=== PATIENT | female | born 1965 | race Hispanic/Latino ===

== ENCOUNTER 2017-07-06 22:30 | Observation (INO) | payer OTHER ==
[2017-07-06 23:00] VITALS: BMI 35.5
--- NOTE | 2017-07-06 23:23 | ED PDOC ---
Arrival/HPI <ConnieJuan Carlos - Last Filed: 07/07/17 01:56> - History of Present Illness Time/Duration: 1 hour Symptom Onset: Sudden Symptom Course: Improving Context: Sitting <ReinaOralia - Last Filed: 07/07/17 02:06> - General Chief Complaint: Anxiety Time Seen by Provider: 07/06/17 22:35 - History of Present Illness Narrative History of Present Illness (Text): 07/06/17 23:19 51 y/o F with PMHx of HTN, HLD presents for chest pressure that began about 1.5 hrs prior to coming to ED. Patient states that she was sitting at home when all of a sudden she developed a "sensation" in her epigastric region radiating to her chest. Patient now c/o of slight chest pressure. Denies having any F/C, N/V /D/C, abd pain, cough. Patient also states that she occasionally has LE swelling L>R. Patient called EMS and was told to take 4 baby Aspirins. No recent travels or history of blood clots. Patient denies having any tobacco, ETOH or drug use. Patient's father had CAD. (Oralia Huang) Past Medical History - Provider Review Nursing Documentation Reviewed: Yes - Travel History Have you recently traveled outside [place] w/in the past 3 mons?: No - Cardiac Hx Hypertension: Yes - Musculoskeletal/Rheumatological Hx Falls: No - Psychiatric Hx Depression: No Hx Emotional Abuse: No Hx Physical Abuse: No Hx Substance Use: No - Past Surgical History Past Surgical History: No Previous - Suicidal Assessment Feels Threatened In Home Enviroment: No <Oralia Huang - Last Filed: 07/07/17 02:06> Family/Social History - Physician Review Nursing Documentation Reviewed: Yes Family/Social History: CAD/[place] Smoking Status: Never Smoked Hx Alcohol Use: No Hx Substance Use: No <Oralia Huang - Last Filed: 07/07/17 02:06> Allergies/Home Meds <ConnieJuan Carlos - Last Filed: 07/07/17 01:56> <Oralia Huang - Last Filed: 07/07/17 02:06> Allergies/Adverse Reactions: Allergies No Known Allergies Allergy (Verified 05/03/13 20:34) Home Medications: Home Meds Medication Instructions Recorded Confirmed Losartan/Hydrochlorothiazide 1 tab PO DAILY 03/16/16 03/16/16 [Hyzaar 100-25 Tablet] Review of Systems - Review of Systems Constitutional: Normal. absent: Fatigue, Fevers Eyes: Normal. absent: Photophobia ENT: Normal. absent: Sore Throat, Rhinorrhea Respiratory: Normal. absent: SOB, Cough, Sputum, Wheezing Cardiovascular: Normal, Chest Pain. absent: Palpitations, Edema, Calf Pain Gastrointestinal: Normal. absent: Abdominal Pain, Constipation, Diarrhea, Nausea, Vomiting Genitourinary Female: Normal. absent: Dysuria, Frequency Musculoskeletal: absent: Back Pain Skin: Normal. absent: Rash, Pruritis, Skin Lesions Neurological: Normal. absent: Headache, Dizziness Endocrine: Normal. absent: Diaphoresis Hemo/Lymphatic: Normal. absent: Adenopathy, Easy Bleeding <Oralia Huang - Last Filed: 07/07/17 02:06> Physical Exam Temperature: Afebrile Blood Pressure: Hypertensive Pulse: Regular Respiratory Rate: Normal Appearance: Positive for: Well-Appearing, Non-Toxic, Comfortable Pain Distress: None Mental Status: Positive for: Alert and Oriented X 3 - Systems Exam Head: Present: Atraumatic, Normocephalic Extroacular Muscles: Present: EOMI Mouth: Present: Moist Mucous Membranes Respiratory/Chest: Present: Clear to Auscultation, Good Air Exchange. No: Respiratory Distress, Accessory Muscle Use, Wheezes, Rales, Rhonchi Cardiovascular: Present: Regular Rate and Rhythm, Normal S1, S2. No: Murmurs, Rub, Gallop, Muffled Abdomen: Present: Normal Bowel Sounds. No: Tenderness, Distention, Peritoneal Signs, Rebound, Guarding Upper Extremity: No: Cyanosis, Edema Lower Extremity: Present: Normal Inspection, NORMAL PULSES. No: Edema, CALF TENDERNESS, Shaina's Sign Neurological: Present: GCS=15 Skin: Present: Warm, Dry, Normal Color. No: Rashes, Pale Psychiatric: Present: Alert, Oriented x 3, Normal Insight, Normal Concentration <Oralia Huang - Last Filed: 07/07/17 02:06> Vital Signs Temp Pulse Resp BP Pulse Ox 07/07/17 01:56 78 16 133/76 99 07/06/17 22:31 98.9 F 75 16 150/96 H 96 Medical Decision Making - Lab Interpretations I have reviewed the lab results: Yes - RAD Interpretation Reservation Agent: ED Physician, Radiologist - EKG Interpretation Interpreted by ED Physician: Yes Type: 12 lead EKG <Juan Carlos Rosales - Last Filed: 07/07/17 01:56> - Lab Interpretations I have reviewed the lab results: Yes - RAD Interpretation Reservation Agent: ED Physician, Radiologist - EKG Interpretation Interpreted by ED Physician: Yes Type: 12 lead EKG <Oralia Huang - Last Filed: 07/07/17 02:06> ED Course and Treatment: Impression: Pt seen and evaluated with medical massage therapist. Pt, whose past medical history includes hypertension and hyperlipidemia, complaining of chest pressure. Aware and agree with HPI, clinical findings, plan, and management. Plan: -- EKG -- Chest X-ray -- US Duplex Lower Extremities -- Labs, cardiac enzymes -- Reassess and disposition 07/07/17 01:[address] Ott, who is aware and agrees with plan. Accepts pt in to his service. Pt will go to Telemetry for chest pain. Requests Dr. Squires on consult. (Juan Carlos Rosales) 07/06/17 23:26 51 y/o F presents for chest pressure. Patient took stat dose fo Aspirin prior to coming ot hospital. Will check CBC, CMP, cardiac enzymes, EKG, CXR, LE US 07/07/17 01:54 Dr. Rosales spoke with Dr. Ott who accepts patient under his service. Resident is notified. (Oralia Huang) - Lab Interpretations Narrative Lab Interpretation (Text): 07/07/17 01:46 noted to have WBC count of 12.3 07/07/17 02:06 troponin is negative (Oralia Huang) Lab Results: 07/07/17 01:05 07/07/17 01:05 Lab Results 07/07/17 01:50: Urine Color Yellow, Urine Appearance Slight-cloudy, Urine pH 6.0 , Ur Specific [place] 1.025, Urine Protein Negative, Urine Glucose (UA) Negative , Urine Ketones Negative, Urine Blood Small H, Urine Nitrate Negative, Urine Bilirubin Negative, Urine Urobilinogen 0.2, Ur Leukocyte Esterase Negative, Urine RBC Pending, Urine WBC Pending 07/07/17 01:05: Sodium 143, Potassium 4.2, Chloride 102, Carbon Dioxide 28, Anion Gap 17, BUN 17, Creatinine 0.6, Est GFR ( Amer) > 60, Est GFR (Non- Af Amer) > 60, Random Glucose 128 H, Calcium 10.0, Total Bilirubin 0.4, AST 27, ALT 30, Alkaline Phosphatase 78, Lactate Dehydrogenase 331 L, Total Creatine Kinase 54, Troponin I < 0.01, Total Protein 7.4, Albumin 4.3, Globulin 3.2, Albumin/Globulin Ratio 1.3 07/07/17 01:05: WBC 12.3 H D, RBC 4.69, Hgb 13.9, Hct 41.0, MCV 87.4, MCH 29.6, MCHC 33.9, RDW 13.4, Plt Count 282, MPV 9.9 - RAD Interpretation Narrative RAD Interpretations (Text): 07/07/17 01:03 CXr was negative. LE Us was negative. (Oralia Huang) Radiology Orders: 07/06/17 23:17 DUPLEX LOWER EXTRM VEIN BILAT [US] Stat 07/06/17 23:19 CHEST PORTABLE [RAD] Stat - EKG Interpretation EKG Interpretation (Text): 07/06/17 23:25 NSR HR of 70, no ST changes, normal axis and normal interval. No change compared to EKG from 2016 (Oralia Huang) - PA / [employer] / Resident Statement KRZYSZTOF has reviewed & agrees with the documentation as recorded. KRZYSZTOF has examined the patient and agrees with the treatment plan. <Juan Carlos Rosales - Last Filed: 07/07/17 01:56> Disposition/Present on Arrival <Juan Carlos Rosales - Last Filed: 07/07/17 01:56> - Present on Arrival Any Indicators Present on Arrival: No History of DVT/PE: No History of Uncontrolled Diabetes: No Urinary Catheter: No History of Decub. Ulcer: No History Surgical Site Infection Following: None - Disposition Have Diagnosis and Disposition been Completed?: Yes Disposition Time: 02:06 Patient Plan: Admission, Observation <Oralia Huang - Last Filed: 07/07/17 02:06> - Disposition Diagnosis: Chest pain Disposition: HOSPITALIZED Condition: STABLE Discharge Instructions (ExitCare): Chest Pain (ED) Referrals: Shanae Meier MD [Primary Care Provider] - Follow up with primary Forms: [facility] (Syrian)
[2017-07-07 01:34] LABS: HEMOGLOBIN 13.9 g/dL (12.0-16.0); MEAN CELL VOLUME 87.4 fl (80.0-105.0); MEAN CORPUSCULAR HEMOGLOBIN 29.6 pg (25.0-35.0); MEAN CORPUSCULAR HGB CONC 33.9 g/dl (31.0-37.0); MEAN PLATELET VOLUME 9.9 fl (7.0-11.0); RBC 4.69 10^6/uL (3.5-6.1); RED CELL DISTRIBUTION WIDTH 13.4 % (11.5-14.5); WHITE BLOOD COUNT 12.3 10^3/ul (4.5-11.0)
[2017-07-07 01:43] LABS: ALB/GLOB RATIO 1.3 (1.1-1.8); ALBUMIN 4.3 g/dL (3.0-4.8); ALT/SGPT 30 U/L (7-56); AST/SGOT 27 U/L (15-39); BLOOD UREA NITROGEN 17 mg/dL (7-21); GFR AFRICAN-AMERICAN > 60; GFR NON-AFRICAN AMERICAN > 60
[2017-07-07 01:59] LABS: TROPONIN I < 0.01 ng/mL
[2017-07-07 02:00] LABS: URINE BILIRUBIN NEGATIVE (NEGATIVE); URINE BLOOD SMALL (NEGATIVE); URINE GLUCOSE (UA) NEGATIVE (NEGATIVE); URINE LEUKOCYTE ESTERASE NEGATIVE Leu/uL (NEGATIVE); URINE NITRATE NEGATIVE (NEGATIVE); URINE PROTEIN NEGATIVE mg/dL (<30 mg/dL); URINE UROBILINOGEN 0.2 E.U./dL (<1 E.U./dL)
[2017-07-07 02:03] LABS: URINE APPEARANCE SLIGHT-CLOUDY (CLEAR); URINE COLOR YELLOW (YELLOW)
[2017-07-07 02:13] LABS: URINE WBC 0 - 2 /hpf (0-6)
[2017-07-07 02:14] LABS: URINE EPITHELIAL CELLS 0 - 2 /hpf (0-5)
--- NOTE | 2017-07-07 02:59 | CP.PCM.HP ---
History of Present Illness - History of Present Illness History of Present Illness: CC: I wasn't feeling right HPI: 51 yo female PMHx HTN, HLD, DM2, anal fissure presents complaining of a "funny sensation" from her abdomen to her chest that occurred the evening prior to admission. Patient reports she was eating dinner [Polish food and pizza] and started to feel a cold sensation in her stomach after her meal while she was lying in bed. She checked her blood pressure and it was 178/93mmHg. Patient reports she has been compliant with her medications. She reports she has had a similar presentation in the past but this time her sensation lasted for 15 minutes after which she decided to call 911. Patient said that during the episode she started to feel anxious and was having some fluttering down her left arm. She denied any acute chest pain but admitted to palpitations at time of event. Patient denied fever, chills, headache, change in vision, change in hearing, sore throat, chest pain, SOB, cough, abd pain, nausea, vomiting, diarrhea, hematemesis, hematochezia, dysuria, urinary frequency, leg swelling, rash, easy bruising, easy bleeding, recent travel, sick contacts, change in weight. She admitted to dizziness, palpitations, constipation, leg pain, anxiety. Patient has also been complaining of blood after she wipes after a BM- she has a history of anal fissures and has been advised to do a colonoscopy but has not done so as of yet. 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 absent: Chills, Fever - EENT Eyes: As Per HPI. absent: Blurred Vision Ears: As Per HPI, Dizziness Nose/Mouth/Throat: As Per HPI. absent: Sore Throat - Cardiovascular Cardiovascular: As Per HPI, Palpitations. absent: Chest Pain, Dyspnea on Exertion, Edema, Leg Edema - Respiratory Respiratory: As Per HPI. absent: Cough, Dyspnea - Gastrointestinal Gastrointestinal: As Per HPI, Constipation, Hematochezia. absent: Abdominal Pain, Nausea, Vomiting - Genitourinary Genitourinary: As Per HPI. absent: Dysuria, Hematuria, Pyuria - Musculoskeletal Musculoskeletal: As Per HPI, Myalgias (legs bilaterally). absent: Back Pain, Numbness, Tingling - Integumentary Integumentary: As Per HPI. absent: Dry Skin - Neurological Neurological: As Per HPI, Dizziness. absent: Headaches - Psychiatric Psychiatric: As Per HPI, Anxiety. absent: Depression - Endocrine Endocrine: As Per HPI. absent: Polydipsia, Polyphagia, Polyuria - Hematologic/Lymphatic Hematologic: As Per HPI. absent: Easy Bleeding, Easy Bruising, Lymphadenopathy Past Patient History - Past Social History Smoking Status: Never Smoked - CARDIAC Hx Hypertension: Yes - MUSCULOSKELETAL/RHEUMATOLOGICAL Hx Falls: No - PSYCHIATRIC Hx Depression: No Hx Emotional Abuse: No Hx Physical Abuse: No Hx Substance Use: No Meds Allergies/Adverse Reactions: Allergies Allergy/AdvReac Type Severity Reaction Status Date / Time No Known Allergies Allergy Verified 05/03/13 20:34 Physical Exam - Constitutional Appears: Non-toxic, No Acute Distress - Head Exam Head Exam: ATRAUMATIC, NORMAL INSPECTION, NORMOCEPHALIC - Eye Exam Eye Exam: EOMI, Normal appearance, PERRL. absent: Conjunctival injection, Scleral icterus Pupil Exam: NORMAL ACCOMODATION - ENT Exam ENT Exam: Mucous Membranes Moist - Neck Exam Neck exam: Positive for: Full Rom, Normal Inspection - Respiratory Exam Respiratory Exam: Clear to Auscultation Bilateral, NORMAL BREATHING PATTERN. absent: Accessory Muscle Use, Rales, Rhonchi, Wheezes, Respiratory Distress - Cardiovascular Exam Cardiovascular Exam: REGULAR RHYTHM, RRR, +S1, +S2 - GI/Abdominal Exam GI & Abdominal Exam: Normal Bowel Sounds, Soft. absent: Firm, Guarding, Rigid, Tenderness - Extremities Exam Extremities exam: Positive for: normal capillary refill, normal inspection, pedal pulses present. Negative for: pedal edema, tenderness - Back Exam Back exam: NORMAL INSPECTION. absent: rash noted - Neurological Exam Neurological exam: Alert, Oriented x3 - Psychiatric Exam Psychiatric exam: Normal Affect, Normal Mood - Skin Skin Exam: Dry, Intact, Normal Color, Warm Results - Vital Signs Recent Vital Signs: Last Vital Signs Temp 98.9 F 07/06/17 22:31 Pulse 78 07/07/17 01:56 Resp 16 07/07/17 01:56 BP 133/76 07/07/17 01:56 Pulse Ox 99 07/07/17 01:56 - Labs Result Diagrams: 07/07/17 01:05 07/07/17 01:05 Assessment & Plan - Assessment and Plan (Free Text) Assessment: 51 yo female PMHx HTN, HLD, DM2, anal fissure presents complaining of a "funny sensation" from her abdomen to her chest that occurred the evening prior to admission Plan: Atypical chest pain - r/o ACS - Troponin: < 0.01 f/u GUNNAR x 2 q6H - EKG: sinus tachycardia at 102 bpm normal axis normal intervals no ST elevations f/u EKG x 2 q6H - D-dimer: 0.45 - f/u Echo - f/u fasting lipid panel - f/u TSH and free T4 - f/u CXR official read - ASA 81mg po daily - Lipitor 40mg po qhs - NS @ 100cc/hr Leukocytosis - on admission: 12.3 - f/u blood culture and urine culture - Monitor as patient is afebrile and asymptomatic B/l LE pain - f/u LE u/s b/l - hold SCDs until DVT ruled out Hx of hypertension - HCTZ 25mg po daily - Cozaar 100mg po daily - Lopressor 25mg po bid Hx of DM2 - f/u HgbA1c - RISS low dose - Accucheck ACHS - Heart healthy moderate consistent carb diet - NS @ 100cc/hr - Check sugars and adjust medications accordingly Hx of HLD - f/u fasting lipid panel - Lipitor 40mg po hs Hx of anal fissures - patient reports constipation and blood after wiping after BM - Colace 100mg po daily Hx of Anxiety - Patient does not take any medications at home - Monitor GI ppx: Protonix 40mg po daily DVT ppx: Lovenox 40mg sc daily Diet: Heart healthy moderate consistent carb diet Will discuss case with Dr. Tru Tejeda PGY2
[2017-07-07] MEDS ORDERED: Sodium Chloride 0.9% 1,000 ML IV SCH (05:15)
[2017-07-07] MEDS ORDERED: Pantoprazole 40 mg EC Tab PO SCH (06:00)
[2017-07-07 06:36] VITALS: RESP 20
[2017-07-07] MEDS ORDERED: Insulin Lispro (humaLOG) LOW Coverage SC SCH (07:30)
[2017-07-07 08:08] LABS: % IRON SATURATION 13 % (20-55); IRON 54 ug/dL (45-180); TOTAL IRON BINDING CAPACITY 417 ug/dL (265-497)
--- NOTE | 2017-07-07 09:01 | RAD ---
HISTORY: Chest pressure. Technique: Portable study performed @ 00:31. COMPARISON: 01/29/2016. FINDINGS: LUNGS: No active pulmonary disease. PLEURA: No significant pleural effusion identified, no pneumothorax apparent. CARDIOVASCULAR: No radiographic findings to suggest acute or significant cardiovascular disease. OSSEOUS STRUCTURES: No significant abnormalities. VISUALIZED UPPER ABDOMEN: Normal. OTHER FINDINGS: None. IMPRESSION: No active disease. No significant interval change compared to the prior examination(s). No preliminary report provided by emergency department personnel.
[2017-07-07] MEDS ORDERED: Enoxaparin 40 mg Syringe SC SCH (10:00)
[2017-07-07 11:11] LABS: TROPONIN I < 0.01 ng/mL
[2017-07-07 11:37] LABS: TRANSFERRIN 347.31 mg/dL (206-381)
[2017-07-07 12:19] LABS: FERRITIN 15.3 ng/mL
[2017-07-07 12:50] LABS: FOLATE 13.4 ng/mL
--- NOTE | 2017-07-07 12:52 | US ---
HISTORY: Leg pain and swelling. Evaluate for DVT PHYSICIAN(S): Omid Kirkland MD. TECHNIQUE: Duplex sonography and color-flow Doppler with graded compression were used to evaluate the deep venous systems of both lower extremities. FINDINGS: The visualized deep venous systems of both lower extremities are sonographically normal and compressible. Normal wave forms and augmentation are seen. There is no sonographic evidence for deep venous thrombosis in the visualized segments of both lower extremities. IMPRESSION: No sonographic evidence for deep venous thrombosis in the visualized segments of both lower extremities.
--- NOTE | 2017-07-07 13:49 | CARD ---
APPROVED REPORT EKG Measurement Heart [id number] <Conclusion> Normal sinus rhythm Inferior infarct, age undetermined Abnormal ECG
--- NOTE | 2017-07-07 13:55 | CARD ---
APPROVED REPORT EKG Measurement Heart [id number] <Conclusion> Normal sinus rhythm Cannot rule out Inferior infarct, age undetermined Abnormal ECG
[2017-07-07 13:57] VITALS: BP 119/82; PULSE 68; TEMP 98.6; O2SAT 98
--- NOTE | 2017-07-07 14:30 | CON ---
DATE: 07/07/2017 CARDIOLOGY CONSULTATION HISTORY OF PRESENT ILLNESS: The patient is a 51-year-old woman who presents with epigastric discomfort after a large fatty meals. She also complains of occasional palpitations. The patient's past medical history has had multiple episodes of similar symptoms. Cardiac workup includes two sequential stress test which were unremarkable. The patient suffers from morbid obesity, hypertension and hypercholesterolemia. The patient is noncompliant current dietary and cardiac risk fever risk reduction instructions. SOCIAL HISTORY: She denies smoking. REVIEW OF SYSTEMS: A 14-point review of systems was reviewed. No cardiac symptomatology is noted. The patient is asking the go home. PHYSICAL EXAMINATION VITAL SIGNS: Blood pressure is 140/84, the heart rate is in the 70s and normal sinus rhythm. NECK: Negative JVD. LUNGS: Without rales. HEART: Reveals S1 and S2. EXTREMITIES: Without edema. LABORATORY DATA: Includes a glucose of 128. Troponin is negative. Hemoglobin is 13.9. IMPRESSION 1. Peptic ulcer symptoms after a large fatty meal. 2. Palpitations. 3. Atypical chest pain. 4. Hypertension. 5. Hypercholesterolemia. 6. Morbid obesity. PLAN: Given these findings, I have discussed her lifestyle with the patient in detail. The patient seems to understand. We will DC telemetry today. We will arrange for an outpatient stress test, especially given her cardiac risk factors. Omid Squires MD
[2017-07-07 15:33] LABS: FREE T4 1.04 ng/dL (0.78-2.19)
--- NOTE | 2017-07-08 09:35 | DS ---
FINAL PROGRESS NOTE AND DISCHARGE SUMMARY DATE: 07/07/2017 LOCATION: The patient was seen in room 269, bed 1. HISTORY OF PRESENT ILLNESS: The patient is comfortable. The patient's symptoms have resolved for which the patient presented to the emergency room. The patient is seen lying in the bed. The patient is comfortable without any complaints of chest pain, shortness of breath. The patient was seen lying in the bed. The patient denies any chest pain. Denies any shortness of breath. Denies any palpitations. Denies any burning sensation. Denies any chest pressure. Denies any heaviness. PHYSICAL EXAMINATION: VITAL SIGNS: The patient is afebrile, T-max 98.9, telemetry shows sinus rhythm, blood pressure 148/95, 140/84, 147/84, respirations 20, and O2 saturation 97%. HEAD: Normocephalic and atraumatic. HEENT: Shows pink conjunctivae. No oropharyngeal lesion. NECK: No neck rigidity. CHEST: Kyphosis. LUNGS: Shows no rales, crackles, or wheezing. CARDIOVASCULAR: S1 and S2, regular rhythm. ABDOMEN: Obese. Positive bowel sounds. GENITALIA: Female. RECTAL: Deferred. EXTREMITIES: Shows no pitting edema. No calf tenderness. No Homans' sign. NEUROLOGIC: The patient is alert, awake and oriented x 3. Examination without any deficits. Cranial nerves II through XII intact. MUSCULOSKELETAL: Shows body mass index of 37. LABORATORY DATA: Cardiac enzymes are negative. EKG reviewed shows sinus rhythm. Chest x-ray was negative for any active disease. EKG is reviewed. The patient was seen by Dr. Omid Squires today. Telemetry was discontinued by Dr. Omid Squires. IMPRESSION AND PLAN: 1. Possibly atypical chest pain. 2. Hypertension. 3. Morbid obesity. 4. Hyperlipidemia. 5. Type 2 diabetes mellitus. 6. Leukocytosis. 7. Hypertriglyceridemia and hypercholesterolemia with elevated LDL. 8. Microscopic hematuria. 9. History of dyslipidemia. PLAN: At this time, the patient is clear for discharge by cardiology. DISCHARGE MEDICATIONS: The patient was advised to resume all medications at home including aspirin 325 mg p.o daily, Hyzaar 100/25 daily, Lipitor 40 mg daily, Lopressor 25 mg twice a day. The patient is discharged home with discharge followup with Dr. Ott within [address] Squires within 1 week. The patient was advised to resume all medications. As dictated above, the patient was also advised. As in the past, the patient had a stress test done in 02/2016, which was negative. With normal ejection fraction. The patient's time spent in the entire discharge process more than 45 minutes. The patient was explained about the details at length. Dictated and electronically signed, not read. Signing off, Jorden Ott. Jorden Ott MD
== END 2017-07-07 13:13 | disposition home or self-care (01) ==
LOC: ED 22:30 → ERH 07-07 02:14 → 2RNO 07-07 05:08
PROVIDERS: ADMIT Internal Medicine; ATTEND Internal Medicine
DX: R07.89 Other chest pain (principal); I10 Essential (primary) hypertension; E66.01 Morbid (severe) obesity due to excess calories; E78.5 Hyperlipidemia, unspecified; E11.9 Type 2 diabetes mellitus without complications; D72.829 Elevated white blood cell count, unspecified; E78.2 Mixed hyperlipidemia; R31.29 Other microscopic hematuria; Z79.4 Long term (current) use of insulin; Z68.36 Body mass index [BMI] 36.0-36.9, adult; Z91.11 Patient's noncompliance with dietary regimen
CPT/HCPCS: 71010; 80053; 80061; 81001; 82550; 82607; 82728; 82746; 82948; 83036; 83540; 83550; 83615; 84439; 84443; 84484; 85027; 93005; 93970; 99285; G0378; J1650; J7040

== ENCOUNTER 2017-08-29 07:44 | Emergency (ER) | payer OTHER ==
[2017-08-29 07:45] VITALS: BMI 35.5
[2017-08-29 07:57] VITALS: TEMP 98.7; O2SAT 100
[2017-08-29] MEDS ORDERED: Sodium Chloride 0.9% 1,000 ML IV STA (08:09)
--- NOTE | 2017-08-29 08:13 | ED PDOC ---
Arrival/HPI - General Chief Complaint: Anxiety Time Seen by Provider: 08/29/17 08:08 - History of Present Illness Narrative History of Present Illness (Text): 08/29/17 08:10 51yo female with an episode of dizziness, feeling like the room was spinning, feeling weak, and having palpitations. States this spontaneously resolved, except for weakness. Pt reports she had no chest pain, no SOB, no TROTTER. States she has had these episodes in the past. Had a normal stress test last year, states she had 2 negative CTs of her head. States she has had chronic LLE swelling, no trauma or injury. No nausea or vomiting, no abdominal or back pains. No other complaints. Past Medical History - Provider Review Nursing Documentation Reviewed: Yes - Cardiac Hx Cardiac Disorders: Yes (hyperlipidemia) Hx Hypertension: Yes Hx Peripheral Edema: Yes (bilateral leg edema +1) - Pulmonary Hx Respiratory Disorders: No - Neurological Hx Neurological Disorder: No - HEENT Hx HEENT Disorder: No - Renal Hx Renal Disorder: No - Endocrine/Metabolic Hx Endocrine Disorders: No - Hematological/Oncological Hx Blood Disorders: No - Integumentary Hx Dermatological Disorder: No - Musculoskeletal/Rheumatological Hx Musculoskeletal Disorders: No Hx Arthritis: (joint pains) Hx Falls: No - Gastrointestinal Hx Gastrointestinal Disorders: No - Genitourinary/Gynecological Hx Genitourinary Disorders: No - Psychiatric Hx Psychophysiologic Disorder: Yes Hx Anxiety: Yes Hx Depression: Yes Hx Substance Use: No - Past Surgical History Past Surgical History: No Previous - Suicidal Assessment Feels Threatened In Home Enviroment: No Family/Social History - Physician Review Nursing Documentation Reviewed: Yes Family/Social History: Unknown Family HX Smoking Status: Never Smoked Hx Alcohol Use: No Hx Substance Use: No Allergies/Home Meds Allergies/Adverse Reactions: Allergies No Known Allergies Allergy (Verified 08/29/17 07:49) Home Medications: Home Meds Medication Instructions Recorded Confirmed Losartan/Hydrochlorothiazide 1 tab PO DAILY 03/16/16 08/29/17 [Hyzaar 100-25 Tablet] Aspirin [Ecotrin] 81 mg PO DAILY 08/29/17 08/29/17 Atorvastatin [Lipitor] 20 mg PO .EVERY OTHER DAY 08/29/17 08/29/17 Physical Exam - Physical Exam Narrative Physical Exam (Text): 08/29/17 08:13 - Review of Systems Constitutional: weakness. absent: Weight Change, Fevers Eyes: Normal ENT: denies sore throat, denies tristhmus Respiratory: Normal. absent: SOB, Cough, Sputum Cardiovascular: palpitations. absent: Chest Pain, Syncope Gastrointestinal: Normal. absent: Abdominal Pain, Diarrhea, Nausea, Vomiting Genitourinary: Normal. absent: Dysuria, Frequency, Hematuria, vaginal bleeding Musculoskeletal: Normal. absent: Arthralgias, Back Pain, Neck Pain Skin: no rashes, no erythema Neurological: absent: Focal Weakness Endocrine: Normal Hemo/Lymphatic: Normal Psychiatric: No suicidal or homicidal ideations Physical exam Patient appears age appropriate in no distress, speaking full sentences without difficulty - Systems Exam Head: Present: Atraumatic, Normocephalic Pupils: Present: PERRL Extroacular Muscles: Present: EOMI Conjunctiva: Present: Normal Mouth: Present: Moist Mucous Membranes Neck: Present: Normal Range of Motion. No: MIDLINE TENDERNESS, Paraspinal Tenderness Respiratory/Chest: Present: Clear to Auscultation, Good Air Exchange. No: Respiratory Distress, Accessory Muscle Use, Tachypneic Cardiovascular: Present: Regular Rate and Rhythm, Normal S1, S2, Peripheal Pulses Present. No: Murmurs Abdomen: Present: Normal Bowel Sounds. No: Tenderness, Distention, Peritoneal Signs, Rebound, Guarding Back: Present: Normal Inspection. No: Midline Tenderness, Paraspinal Tenderness Upper Extremity: Present: Normal Inspection. No: Cyanosis, Edema Lower Extremity: Present: Normal Inspection. No: Edema Neurological: Present: GCS=15, Speech Normal, cranial nerves II through XII fully intact with no cerebellar abnormality, neurosensory fully intact. No focal neurological deficits. Skin: Present: Warm, Dry, Normal Color. No: Rashes Lymphatic: Present: OX3, NI, NC Psychiatric: Present: Alert, Oriented x 3, Normal Insight, Normal Concentration Vital Signs Reviewed: Yes Vital Signs Temp Pulse Resp BP Pulse Ox 08/29/17 10:06 63 16 121/69 100 08/29/17 07:56 98.7 F 68 15 124/89 100 Temperature: Afebrile Blood Pressure: Normal Pulse: Regular Respiratory Rate: Normal Appearance: Positive for: Well-Appearing Pain Distress: None Mental Status: Positive for: Alert and Oriented X 3 Finger Stick Blood Glucose: 142 Medical Decision Making ED Course and Treatment: Progress Notes: 51yo female with weakness, palpitations, and dizziness episode. Pt states this has happened in the past. No acute findings on PE and no focal neurological deficits. VSS and accucheck in the 140s. Previous records reviewed, patient was discharged on 07/07/17. Diagnosis was atypical chest pain, hypertension, dyslipidemia, type 2 diabetes, leukocytosis. Patient has been seen by cardiology, and her stress test was documented from which was negative with normal ejection fraction. 08/29/17 09:11 Case discussed with coding technician, results are negative for DVT bilaterally. 08/29/17 10:16 pt in no distress and denies complaints I recommended admission into the hospital for further w/u, but pt states she would like to be dc'd home dw dr. Ott in detail, states pt can f/u with him today pt states she feels comfortable being dc'd home with outpatient f/u Pt states she understands to return to the ER right away for new or worsening symptoms or for inability to f/u with PMD or specialist as instructed. Patient states that she fully agrees with and understands discharge instructions. States that she agrees with the plan and disposition. Verbalized and repeated discharge instructions and plan. I have given the patient opportunity to ask any additional questions. - Lab Interpretations Lab Results: 08/29/17 08:20 08/29/17 08:20 Lab Results 08/29/17 08:20: Free T4 0.84, TSH 3rd Generation 1.01 08/29/17 08:20: Sodium 141, Potassium 3.6, Chloride 105, Carbon Dioxide 24, Anion Gap 16, BUN 19, Creatinine 0.5 L, Est GFR ( Amer) > 60, Est GFR ( Non-Af Amer) > 60, Random Glucose 121 H, Calcium 9.6, Total Bilirubin 0.5, AST 23, ALT 32, Alkaline Phosphatase 64, Lactate Dehydrogenase 368, Total Creatine Kinase 42, Troponin I < 0.01, Total Protein 7.0, Albumin 3.9, Globulin 3.0, Albumin/Globulin Ratio 1.3 08/29/17 08:20: PT 10.7, INR 0.99, APTT 30.1 08/29/17 08:20: WBC 7.6 D, RBC 4.63, Hgb 14.0, Hct 39.9, MCV 86.2, MCH 30.2, MCHC 35.1, RDW 13.4, Plt Count 251, MPV 10.1, Gran % 70.2 H, Lymph % (Auto) 20.6 L, [place] % (Auto) 7.1 H, Eos % (Auto) 1.7, Baso % (Auto) 0.4, Gran # 5.30, Lymph # 1.6, [place] # 0.5, Eos # 0.1, Baso # 0.03 08/29/17 08:05: POC Glucose (mg/dL) 142 H - RAD Interpretation Radiology Orders: 08/29/17 08:09 CHEST ONE VIEW [RAD] Stat DUPLEX LOWER EXTRM VEIN BILAT [US] Stat - Medication Orders Current Medication Orders: Discontinued Medications Sodium Chloride (Sodium Chloride 0.9%) 1,000 mls @ 1,000 mls/hr IV .Q1H STA Stop: 08/29/17 09:08 Last Admin: 08/29/17 08:35 Dose: 1,000 mls/hr eMAR Start Stop Document 08/29/17 08:35 (Rec: 08/29/17 08:35 [id number]) Intravenous Solution Start Date 08/29/17 Start Time 08:35 End Date 08/29/17 End time 10:09 Total Infusion Time 94 - Scribe Statement The provider has reviewed the documentation as recorded by the Vince Paulino Provider Scribe Attestation: All medical record entries made by the Scribe were at my direction and personally dictated by me. I have reviewed the chart and agree that the record accurately reflects my personal performance of the history, physical exam, medical decision making, and the department course for this patient. I have also personally directed, reviewed, and agree with the discharge instructions and disposition. Disposition/Present on Arrival - Present on Arrival Any Indicators Present on Arrival: No History of DVT/PE: No History of Uncontrolled Diabetes: No Urinary Catheter: No History of Decub. Ulcer: No History Surgical Site Infection Following: None - Disposition Have Diagnosis and Disposition been Completed?: Yes Diagnosis: Palpitations Disposition: HOME/ ROUTINE Disposition Time: 10:12 Patient Plan: Discharge Condition: GOOD Discharge Instructions (ExitCare): Palpitations (ED), Weakness (ED) Additional Instructions: PLEASE REPORT TO DR. GRAFF OFFICE TODAY FOR FOLLOW UP RETURN TO THE ER RIGHT AWAY FOR NEW OR WORSENING SYMPTOMS OR IF YOU CANNOT FOLLOW UP INSTRUCTED Referrals: Shanae Meier MD [Primary Care Provider] - Follow up with primary Jorden Ott MD [Staff Provider] - Follow up with primary Forms: [employer] (Indonesian), WORK NOTE
[2017-08-29 08:37] LABS: BASO # 0.03 K/mm3 (0.0-2.0); BASO % 0.4 % (0.0-3.0); EOS # 0.1 (0.0-0.7); EOS % 1.7 % (1.5-5.0); GRAN # 5.3 (1.4-6.5); GRAN % 70.2 % (50.0-68.0); HEMATOCRIT 39.9 % (36.0-48.0); LYMPH # 1.6 (1.2-3.4); LYMPH % 20.6 % (22.0-35.0); MEAN CELL VOLUME 86.2 fl (80.0-105.0); MEAN CORPUSCULAR HEMOGLOBIN 30.2 pg (25.0-35.0); MEAN CORPUSCULAR HGB CONC 35.1 g/dl (31.0-37.0); MEAN PLATELET VOLUME 10.1 fl (7.0-11.0); MONO # 0.5 (0.1-0.6); MONO % 7.1 % (1.0-6.0); RED CELL DISTRIBUTION WIDTH 13.4 % (11.5-14.5); WHITE BLOOD COUNT 7.6 10^3/ul (4.5-11.0)
[2017-08-29 08:47] LABS: ALB/GLOB RATIO 1.3 (1.1-1.8); ALKALINE PHOSPHATASE 64 U/L (38-126); ALT/SGPT 32 U/L (7-56); AST/SGOT 23 U/L (14-36); BILIRUBIN,TOTAL 0.5 mg/dL (0.2-1.3); BLOOD UREA NITROGEN 19 mg/dL (7-21); CALCIUM 9.6 mg/dL (8.4-10.5); CARBON DIOXIDE 24 mmol/L (21-33); CHLORIDE 105 mmol/L (98-107); GFR AFRICAN-AMERICAN > 60; GLUCOSE,RANDOM 121 mg/dL (70-110); INR 0.99 (0.93-1.08); PARTIAL THROMBOPLASTIN TIME 30.1 Seconds (23.7-30.8); POTASSIUM 3.6 mmol/L (3.6-5.0); SODIUM 141 mmol/L (132-148)
[2017-08-29 08:58] LABS: TROPONIN I < 0.01 ng/mL
[2017-08-29 09:03] LABS: FREE T4 0.84 ng/dL (0.78-2.19)
[2017-08-29 09:17] LABS: THYROID STIMULATING HORMONE 1.01 mIU/mL (0.46-4.68)
--- NOTE | 2017-08-29 09:39 | RAD ---
PROCEDURE: CHEST RADIOGRAPH, 1 VIEW HISTORY: palpitations COMPARISON: 07/07/2017. FINDINGS: LUNGS: The lungs are clear. PLEURA: There is a small left pleural effusion No pneumothorax or right pleural effusion seen. CARDIOVASCULAR: Normal. OSSEOUS STRUCTURES: No significant abnormalities. VISUALIZED UPPER ABDOMEN: Normal. OTHER FINDINGS: None. IMPRESSION: Small left pleural effusion.
[2017-08-29 10:09] VITALS: BP 121/69; PULSE 63; RESP 16
--- NOTE | 2017-08-29 21:25 | CARD ---
APPROVED REPORT EKG Measurement Heart [id number] <Conclusion> Sinus rhythm with premature atrial complexes Otherwise normal ECG
== END 2017-08-29 10:39 | disposition home or self-care (01) ==
LOC: ED 07:44
DX: R00.2 Palpitations (principal); I10 Essential (primary) hypertension; E78.5 Hyperlipidemia, unspecified
CPT/HCPCS: 71010; 80053; 82550; 82948; 83615; 84439; 84443; 84484; 85025; 85610; 85730; 93005; 93970; 96360; 96361; 99284; J7040

== ENCOUNTER 2017-12-12 01:00 | Emergency (ER) | payer OTHER ==
[2017-12-12 01:00] VITALS: BMI 35.5
[2017-12-12 01:16] VITALS: BP 127/79; PULSE 70; RESP 18; TEMP 98.2; O2SAT 100
--- NOTE | 2017-12-12 01:24 | ED PDOC ---
Arrival/HPI - General Chief Complaint: Anxiety Time Seen by Provider: 12/12/17 01:13 Historian: Patient - History of Present Illness Narrative History of Present Illness (Text): 12/12/17 01:24 Kaley Murphy is a 52 year old female, whose past medical history includes hypertension, hyperlipidemia, diabetes, and anxiety, who presents to the Emergency department for abdominal discomfort and anxiety. Patient states she woke up tonight prior to arrival and felt a cold sensation and shakiness. Patient also reports upper abdominal discomfort radiating to her back. Patient states she has been in a "constant state of nervousness" due to abdominal discomfort, which she has been experiencing for a while. Patient states she is scheduled for a colonoscopy with her director of workforce development on 12/28 but is worried her symptoms may be due to a more serious issue. Patient denies any fever, chills, chest pain, shortness of breath, nausea, vomiting, diarrhea, urinary symptoms, back pain,neck pain, headache, dizziness, or any other complaints. PMD: Dr. Meier Symptom Onset: Gradual Symptom Course: Unchanged Quality: Pressure Activities at Onset: Rest, Sleeping Context: Home Past Medical History - Provider Review Nursing Documentation Reviewed: Yes - Reproductive Menopause: Yes - Cardiac Hx Cardiac Disorders: Yes (hyperlipidemia) Hx Hypertension: Yes Hx Peripheral Edema: Yes (bilateral leg edema +1) - Pulmonary Hx Respiratory Disorders: No - Neurological Hx Neurological Disorder: No - HEENT Hx HEENT Disorder: No - Renal Hx Renal Disorder: No - Endocrine/Metabolic Hx Endocrine Disorders: No - Hematological/Oncological Hx Blood Disorders: No - Integumentary Hx Dermatological Disorder: No - Musculoskeletal/Rheumatological Hx Musculoskeletal Disorders: No Hx Arthritis: (joint pains) Hx Falls: No - Gastrointestinal Hx Gastrointestinal Disorders: No - Genitourinary/Gynecological Hx Genitourinary Disorders: No - Psychiatric Hx Psychophysiologic Disorder: Yes Hx Anxiety: Yes Hx Depression: Yes Hx Substance Use: No - Past Surgical History Past Surgical History: No Previous - Suicidal Assessment Feels Threatened In Home Enviroment: No Family/Social History - Physician Review Nursing Documentation Reviewed: Yes Family/Social History: Unknown Family HX Smoking Status: Never Smoked Hx Alcohol Use: No Hx Substance Use: No Allergies/Home Meds Allergies/Adverse Reactions: Allergies No Known Allergies Allergy (Verified 12/12/17 01:18) Home Medications: Home Meds Medication Instructions Recorded Confirmed Losartan/Hydrochlorothiazide 1 tab PO DAILY 03/16/16 12/12/17 [Hyzaar 100-25 Tablet] Aspirin [Ecotrin] 81 mg PO DAILY 08/29/17 12/12/17 Atorvastatin [Lipitor] 20 mg PO .EVERY OTHER DAY 08/29/17 12/12/17 Sertraline [Zoloft] 50 mg PO HS 12/12/17 12/12/17 Review of Systems - Physician Review All systems were reviewed & negative as marked: Yes - Review of Systems Constitutional: Normal. absent: Fevers Eyes: Normal ENT: Normal Respiratory: Normal. absent: SOB, Cough Cardiovascular: Normal. absent: Chest Pain Gastrointestinal: Abdominal Pain. absent: Diarrhea, Nausea, Vomiting Genitourinary Female: Normal. absent: Dysuria, Frequency, Hematuria, Urine Output Changes Musculoskeletal: Normal. absent: Back Pain, Neck Pain Skin: Normal. absent: Rash Neurological: Normal. absent: Headache, Dizziness Endocrine: Normal Hemo/Lymphatic: Normal Psychiatric: Anxiety Physical Exam Vital Signs Reviewed: Yes Vital Signs Temp Pulse Resp BP Pulse Ox 12/12/17 01:11 98.2 F 70 18 127/79 100 Temperature: Afebrile Blood Pressure: Normal Pulse: Regular Respiratory Rate: Normal Appearance: Positive for: Well-Appearing, Non-Toxic, Comfortable Pain Distress: None Mental Status: Positive for: Alert and Oriented X 3 - Systems Exam Head: Present: Atraumatic, Normocephalic Pupils: Present: PERRL Extroacular Muscles: Present: EOMI Conjunctiva: Present: Normal Mouth: Present: Moist Mucous Membranes Neck: Present: Normal Range of Motion Respiratory/Chest: Present: Clear to Auscultation, Good Air Exchange. No: Respiratory Distress, Accessory Muscle Use Cardiovascular: Present: Regular Rate and Rhythm, Normal S1, S2. No: Murmurs Abdomen: Present: Normal Bowel Sounds. No: Tenderness, Distention, Peritoneal Signs Back: Present: Normal Inspection Upper Extremity: Present: Normal Inspection. No: Cyanosis, Edema Lower Extremity: Present: Normal Inspection. No: Edema Neurological: Present: GCS=15, CN II-XII Intact, Speech Normal Skin: Present: Warm, Dry, Normal Color. No: Rashes Psychiatric: Present: Alert, Oriented x 3, Normal Insight, Normal Concentration Medical Decision Making ED Course and Treatment: 12/12/17 01:24 Impression: 52 year old female complaining of anxiety and upper abdominal discomfort. Plan: -- CT Abdomen and Pelvis -- EKG -- Labs, alcohol level -- Urinalysis, urine drug screen -- Reassess and disposition Prior Visits: Notes and results from previous visits were reviewed. On 08/29/2017, pt was seen in the Emergency department for dizziness, generalized weakness, and palpitaions. Pt was d/c home. Progress Notes: 12/12/17 02:12 Reviewed EKG, sinus rhythm at 61 bpm. Premature atrial complexes. No acute changes. 12/12/17 05:39 CT Abdomen and Pelvis shows: Limitations: Lack of intravenous contrast. Lower thorax: No acute findings. ABDOMEN: Liver: Unremarkable. Gallbladder and bile ducts: Gallstones. No significant ductal dilation. Pancreas: Unremarkable. No ductal dilation. Spleen: No splenomegaly. Adrenals: No mass. Kidneys and ureters: No renal calculi. No hydronephrosis. Stomach and bowel: No definite mural thickening. No obstruction. Appendix: Normal caliber. No inflammation. PELVIS: Bladder: Unremarkable. No stones. Reproductive: Unremarkable as visualized. ABDOMEN and PELVIS: Intraperitoneal space: No significant fluid collection. No free air. Bones/joints: Mild degenerative changes of spine. No acute fracture. Soft tissues: Unremarkable. Vasculature: Minimal to mild atherosclerotic disease. No aneurysm. Lymph nodes: No pathologically enlarged lymph nodes. IMPRESSION: 1. Cholelithiasis. 2. Incidental/non-acute findings are described above. CT Head shows: Brain: Mild atrophy. No intracranial hemorrhage. No mass. No definite edema. Ventricles: No hydrocephalus. Bones/joints: No acute fracture. Lucent lesion within calvarium, stable. Soft tissues: Unremarkable. Sinuses: No acute sinusitis. Mastoid air cells: No mastoid effusion. Orbits: Unremarkable as visualized. IMPRESSION: 1. No definite acute intracranial abnormality. 2. Incidental/non-acute findings are described above. 12/12/17 05:40 Pt seen and evaluated by ELLIOT Jade, who discussed case with psychiatrist retail client solutions analyst. Pt psychiatrically cleared for discharge. 12/12/17 05:47 On re-evaluation, patient feels better and is in no acute distress. I have discussed the results and plan with the patient, who expresses understanding. Patient in agreement with plan to be discharged home. Patient is stable for discharge. Patient was instructed to follow up with physician or return if symptoms worsen or new concerning symptoms arise. - Lab Interpretations Lab Results: 12/12/17 01:44 12/12/17 01:44 Lab Results 12/12/17 02:15: Urine Opiates Screen Negative, Urine Methadone Screen Negative, Ur Barbiturates Screen Negative, Ur Phencyclidine Scrn Negative, Ur Amphetamines Screen Negative, U Benzodiazepines Scrn Negative, U Oth Cocaine Metabols Negative, U Cannabinoids Screen Negative 12/12/17 01:44: Alcohol, Quantitative < 10 12/12/17 01:44: Salicylates < 1 L, Acetaminophen < 10.0 L 12/12/17 01:44: Sodium 139, Potassium 3.1 L, Chloride 104, Carbon Dioxide 23, Anion Gap 16, BUN 21, Creatinine 0.6 L, Est GFR ( Amer) > 60, Est GFR ( Non-Af Amer) > 60, Random Glucose 101, Calcium 9.9, Total Bilirubin 0.6, AST 23 , ALT 46, Alkaline Phosphatase 61, Total Protein 7.2, Albumin 4.0, Globulin 3.2 , Albumin/Globulin Ratio 1.3 12/12/17 01:44: Urine Color Yellow, Urine Appearance Clear, Urine pH 6.0, Ur Specific Brutus 1.020, Urine Protein Negative, Urine Glucose (UA) Negative, Urine Ketones Negative, Urine Blood Small H, Urine Nitrate Negative, Urine Bilirubin Negative, Urine Urobilinogen 0.2, Ur Leukocyte Esterase Negative, Urine RBC 1 - 3, Urine WBC 0 - 2, Ur Epithelial Cells 1 - 3, Urine Bacteria Rare 12/12/17 01:44: WBC 9.3 D, RBC 4.45, Hgb 13.6, Hct 39.6, MCV 89.0, MCH 30.6, MCHC 34.3, RDW 13.2, Plt Count 276, MPV 10.2, Gran % 61.3, Lymph % (Auto) 29.6, [place] % (Auto) 7.1 H, Eos % (Auto) 1.5, Baso % (Auto) 0.5, Gran # 5.67, Lymph # 2.7, [place] # 0.7 H, Eos # 0.1, Baso # 0.05 I have reviewed the lab results: Yes - RAD Interpretation Radiology Orders: 12/12/17 03:45 ABD & PELVIS W/O PO OR IV CONT [CT] Stat 12/12/17 03:46 HEAD W/O CONTRAST [CT] Stat Bag Machine Tender: Radiologist - EKG Interpretation Interpreted by ED Physician: Yes Type: 12 lead EKG - Medication Orders Current Medication Orders: Discontinued Medications Lorazepam (Ativan) 0.5 mg PO ONCE ONE PRN Reason: Protocol Stop: 12/12/17 03:13 Last Admin: 12/12/17 03:53 Dose: 0.5 mg Ondansetron HCl (Zofran Odt) 8 mg PO STAT STA Stop: 12/12/17 05:35 Last Admin: 12/12/17 05:56 Dose: 8 mg Potassium Chloride (K-Dur 20 Meq Er Tab) 40 meq PO ONCE ONE Stop: 12/12/17 02:48 Last Admin: 12/12/17 03:05 Dose: 40 meq - Scribe Statement The provider has reviewed the documentation as recorded by the Vince Boyle Provider Scribe Attestation: All medical record entries made by the Asaibcarolina were at my direction and personally dictated by me. I have reviewed the chart and agree that the record accurately reflects my personal performance of the history, physical exam, medical decision making, and the department course for this patient. I have also personally directed, reviewed, and agree with the discharge instructions and disposition. Disposition/Present on Arrival - Present on Arrival Any Indicators Present on Arrival: No History of DVT/PE: No History of Uncontrolled Diabetes: No Urinary Catheter: No History of Decub. Ulcer: No History Surgical Site Infection Following: None - Disposition Have Diagnosis and Disposition been Completed?: Yes Diagnosis: Anxiety, Hypokalemia Disposition: HOME/ ROUTINE Disposition Time: 05:47 Condition: GOOD Discharge Instructions (ExitCare): Hypokalemia (ED), Anxiety (ED) Forms: [employer] (Kazakh)
[2017-12-12 02:16] LABS: BASO # 0.05 K/mm3 (0.0-2.0); BASO % 0.5 % (0.0-3.0); EOS # 0.1 (0.0-0.7); EOS % 1.5 % (1.5-5.0); GRAN # 5.67 (1.4-6.5); GRAN % 61.3 % (50.0-68.0); HEMOGLOBIN 13.6 g/dL (12.0-16.0); LYMPH # 2.7 (1.2-3.4); LYMPH % 29.6 % (22.0-35.0); MEAN CORPUSCULAR HEMOGLOBIN 30.6 pg (25.0-35.0); MEAN CORPUSCULAR HGB CONC 34.3 g/dl (31.0-37.0); MEAN PLATELET VOLUME 10.2 fl (7.0-11.0); MONO # 0.7 (0.1-0.6); MONO % 7.1 % (1.0-6.0); RBC 4.45 10^6/uL (3.5-6.1); RED CELL DISTRIBUTION WIDTH 13.2 % (11.5-14.5); URINE BILIRUBIN NEGATIVE (NEGATIVE); URINE BLOOD SMALL (NEGATIVE); URINE GLUCOSE (UA) NEGATIVE (NEGATIVE); URINE LEUKOCYTE ESTERASE NEGATIVE Leu/uL (NEGATIVE); URINE NITRATE NEGATIVE (NEGATIVE); URINE PROTEIN NEGATIVE mg/dL (<30 mg/dL); URINE UROBILINOGEN 0.2 E.U./dL (<1 E.U./dL); WHITE BLOOD COUNT 9.3 10^3/ul (4.5-11.0)
[2017-12-12 02:17] LABS: URINE APPEARANCE CLEAR (CLEAR); URINE COLOR YELLOW (YELLOW)
[2017-12-12 02:29] LABS: ALB/GLOB RATIO 1.3 (1.1-1.8); ALT/SGPT 46 U/L (7-56); AST/SGOT 23 U/L (14-36); BLOOD UREA NITROGEN 21 mg/dL (7-21); CALCIUM 9.9 mg/dL (8.4-10.5); GFR AFRICAN-AMERICAN > 60; GFR NON-AFRICAN AMERICAN > 60
[2017-12-12 02:31] LABS: URINE BACTERIA RARE (NEG); URINE WBC 0 - 2 /hpf (0-6)
[2017-12-12 02:45] LABS: BARBITURATES, UR NEGATIVE (NEGATIVE); BENZODIAZEPINES, UR NEGATIVE (NEGATIVE); OPIATES, UR NEGATIVE (NEGATIVE); PHENCYCLIDINE, UR NEGATIVE (NEGATIVE)
[2017-12-12] MEDS ORDERED: Potassium Chloride 20 mEq ER Tab PO ONE (02:47)
[2017-12-12 03:19] LABS: ACETAMINOPHEN < 10.0 ug/ml (10.0-20.0); SALICYLATE < 1 mg/dL (2.0-20.0)
--- NOTE | 2017-12-12 05:10 | CT ---
EXAM: CT Head Without Intravenous Contrast CLINICAL HISTORY: 52 years old, female; Signs and symptoms; Dizziness; Additional info: Dizzy TECHNIQUE: Axial computed tomography images of the head/brain without intravenous contrast. All CT scans at this facility use one or more dose reduction techniques, viz.: automated exposure control; ma/kV adjustment per patient size (including targeted exams where dose is matched to indication; i.e. head); or iterative reconstruction technique. Coronal and sagittal reformatted images were created and reviewed. COMPARISON: CT - HEAD W/O CONTRAST 2016-01-29 13:10 FINDINGS: Brain: Mild atrophy. No intracranial hemorrhage. No mass. No definite edema. Ventricles: No hydrocephalus. Bones/joints: No acute fracture. [place] lesion within calvarium, stable. Soft tissues: Unremarkable. Sinuses: No acute sinusitis. Mastoid air cells: No mastoid effusion. Orbits: Unremarkable as visualized. IMPRESSION: 1. No definite acute intracranial abnormality. 2. Incidental/non-acute findings are described above.
--- NOTE | 2017-12-12 05:13 | CT ---
EXAM: CT Abdomen and Pelvis Without Intravenous Contrast CLINICAL HISTORY: 52 years old, female; Pain; Abdominal pain; Generalized; Additional info: Abd pain TECHNIQUE: Axial computed tomography images of the abdomen and pelvis without intravenous contrast. All CT scans at this facility use one or more dose reduction techniques, viz.: automated exposure control; ma/kV adjustment per patient size (including targeted exams where dose is matched to indication; i.e. head); or iterative reconstruction technique. Coronal and sagittal reformatted images were created and reviewed. COMPARISON: No relevant prior studies available. FINDINGS: Limitations: Lack of intravenous contrast. Lower thorax: No acute findings. ABDOMEN: Liver: Unremarkable. Gallbladder and bile ducts: Gallstones. No significant ductal dilation. Pancreas: Unremarkable. No ductal dilation. Spleen: No splenomegaly. Adrenals: No mass. Kidneys and ureters: No renal calculi. No hydronephrosis. Stomach and bowel: No definite mural thickening. No obstruction. Appendix: Normal caliber. No inflammation. PELVIS: Bladder: Unremarkable. No stones. Reproductive: Unremarkable as visualized. ABDOMEN and PELVIS: Intraperitoneal space: No significant fluid collection. No free air. Bones/joints: Mild degenerative changes of spine. No acute fracture. Soft tissues: Unremarkable. Vasculature: Minimal to mild atherosclerotic disease. No aneurysm. Lymph nodes: No pathologically enlarged lymph nodes. IMPRESSION: 1. Cholelithiasis. 2. Incidental/non-acute findings are described above.
--- NOTE | 2017-12-12 11:48 | CARD ---
APPROVED REPORT EKG Measurement Heart [id number] <Conclusion> Sinus rhythm with premature atrial complex Otherwise normal ECG
== END 2017-12-12 05:50 | disposition home or self-care (01) ==
LOC: ED 01:00
DX: E87.6 Hypokalemia (principal); F41.9 Anxiety disorder, unspecified; E11.9 Type 2 diabetes mellitus without complications; I10 Essential (primary) hypertension; E78.5 Hyperlipidemia, unspecified

== ENCOUNTER 2017-12-17 05:49 | Inpatient (IN) | payer OTHER ==
[2017-12-17 05:50] VITALS: BMI 35.5
--- NOTE | 2017-12-17 07:26 | ED PDOC ---
Arrival/HPI - General Chief Complaint: Abdominal Pain Time Seen by Provider: 12/17/17 06:01 Historian: Patient - History of Present Illness Narrative History of Present Illness (Text): 12/17/17 07:25 52 year old female, whose past medical history includes hypertension, hyperlipidemia, diabetes, and anxiety, presents to the emergency department complaining of abdominal pain radiating to the back associated with nausea for the past few weeks. Patient was seen in the [facility] emergency department on for similar symptoms and had a CT Head and CT ABD & Pelvis which did not show anything significant. Patient presents for similar symptoms. Patient report occasional drinking, but denies smoking, substance abuse, any fever, chills, chest pain, shortness of breath, vomiting, diarrhea, urinary symptoms, neck pain, headache, dizziness, or any other complaints. PMD: Dr. Meier Time/Duration: Other (few weeks) Symptom Course: Unchanged Activities at Onset: Light Context: Home Past Medical History - Provider Review Nursing Documentation Reviewed: Yes - Cardiac Hx Cardiac Disorders: Yes (hyperlipidemia) Hx Hypertension: Yes Hx Peripheral Edema: Yes (bilateral leg edema +1) - Pulmonary Hx Respiratory Disorders: No - Neurological Hx Neurological Disorder: No - HEENT Hx HEENT Disorder: No - Renal Hx Renal Disorder: No - Endocrine/Metabolic Hx Endocrine Disorders: No - Hematological/Oncological Hx Blood Disorders: No - Integumentary Hx Dermatological Disorder: No - Musculoskeletal/Rheumatological Hx Musculoskeletal Disorders: No Hx Arthritis: (joint pains) Hx Falls: No - Gastrointestinal Hx Gastrointestinal Disorders: No - Genitourinary/Gynecological Hx Genitourinary Disorders: No - Psychiatric Hx Psychophysiologic Disorder: Yes Hx Anxiety: Yes Hx Depression: Yes Hx Substance Use: No - Past Surgical History Past Surgical History: No Previous - Suicidal Assessment Feels Threatened In Home Enviroment: No Family/Social History - Physician Review Nursing Documentation Reviewed: Yes Family/Social History: No Known Family HX Smoking Status: Never Smoked Hx Alcohol Use: No Hx Substance Use: No Allergies/Home Meds Allergies/Adverse Reactions: Allergies No Known Allergies Allergy (Verified 12/17/17 06:00) Home Medications: Home Meds Medication Instructions Recorded Confirmed Losartan/Hydrochlorothiazide 1 tab PO DAILY 03/16/16 12/17/17 [Hyzaar 100-25 Tablet] Aspirin [Ecotrin] 81 mg PO HS 08/29/17 12/17/17 Atorvastatin [Lipitor] 20 mg PO .EVERY OTHER DAY 08/29/17 12/17/17 Sertraline [Zoloft] 50 mg PO HS 12/12/17 12/17/17 Review of Systems - Physician Review All systems were reviewed & negative as marked: Yes - Review of Systems Constitutional: absent: Fevers, Other (Chills) Respiratory: absent: SOB Cardiovascular: absent: Chest Pain Gastrointestinal: Abdominal Pain, Nausea. absent: Diarrhea, Vomiting Musculoskeletal: Back Pain. absent: Neck Pain Neurological: absent: Headache, Dizziness Physical Exam Vital Signs Reviewed: Yes Vital Signs Temp Pulse Resp BP Pulse Ox 12/17/17 12:15 98.9 F 61 18 141/82 96 12/17/17 09:14 98.9 F 63 18 125/82 97 12/17/17 06:09 72 18 130/77 97 12/17/17 06:00 97.8 F Temperature: Afebrile Blood Pressure: Normal Pulse: Regular Respiratory Rate: Normal Appearance: Positive for: Well-Appearing, Non-Toxic, Comfortable Pain Distress: None Mental Status: Positive for: Alert and Oriented X 3 - Systems Exam Head: Present: Atraumatic, Normocephalic Pupils: Present: PERRL Extroacular Muscles: Present: EOMI Conjunctiva: Present: Normal Mouth: Present: Moist Mucous Membranes Neck: Present: Normal Range of Motion Respiratory/Chest: Present: Clear to Auscultation, Good Air Exchange. No: Respiratory Distress, Accessory Muscle Use Cardiovascular: Present: Regular Rate and Rhythm, Normal S1, S2. No: Murmurs Abdomen: Present: Tenderness, Normal Bowel Sounds. No: Distention, Peritoneal Signs, Rebound, Guarding Back: Present: Normal Inspection. No: CVA Tenderness Upper Extremity: Present: Normal Inspection. No: Cyanosis, Edema Lower Extremity: Present: Normal Inspection. No: Edema Neurological: Present: GCS=15, CN II-XII Intact, Speech Normal Skin: Present: Warm, Dry, Normal Color. No: Rashes Psychiatric: Present: Alert, Oriented x 3, Normal Insight, Normal Concentration , Anxious (severe anxiety ) Medical Decision Making ED Course and Treatment: 12/17/17 07:25 Impression: 52 year old female presents complaining of abdominal pain radiating to the back associated with nausea. Plan: -- VBG -- EKG -- Labs -- Chest X-ray -- Protonix Inj -- IV Fluids -- Zofran Inj -- Urinalysis -- Abdomen Complete US -- Reassess and disposition Prior Visits: Notes and results from previous visits were reviewed. Patient was last seen in the emergency department on 12/12/17 presents for abdominal discomfort radiating to her back and anxiety. Patient was discharged. Progress Notes: PROCEDURE: Abdomen Complete Dictator : Omid Romeo MD Report Date : 12/17/2017 08:55:40 IMPRESSION: Cholelithiasis without sonographic evidence of cholecystitis. 12/17/17 10:55 PE normal. Discussed with patient who states she has an appointment with psychologist tomorrow. She does not feel like she can wait due to her anxiety currently overwhelming her now. States she wants to see someone. Called Crisis for her. 12/17/17 13:43 EKG shows normal sinus rhythm rate approximately 65 with Q waves inferiorly and no acute ST or T-wave changes 12/17/17 14:05 Seen and evaluated by crisis who will admit to psychiatric floor. - Lab Interpretations Lab Results: 12/17/17 09:35 12/17/17 09:35 Lab Results 12/17/17 09:35: Sodium 142, Chloride 104, Potassium 3.7, Carbon Dioxide 26, Anion Gap 15, BUN 11, Creatinine 0.6 L, Est GFR ( Amer) > 60, Est GFR ( Non-Af Amer) > 60, Random Glucose 95, Calcium 10.3, Total Bilirubin 0.7, AST 26 , ALT 39, Alkaline Phosphatase 63, Lactate Dehydrogenase 413, Total Creatine Kinase 46, Troponin I < 0.01, Total Protein 7.7, Albumin 4.4, Globulin 3.3, Albumin/Globulin Ratio 1.3, Lipase 165 12/17/17 09:35: pO2 45, VBG pH 7.40, VBG pCO2 46.0, VBG HCO3 28.5 H, VBG Total CO2 29.9 H, VBG O2 Sat (Calc) 88.1 H, VBG Base Excess 3.0 H, VBG Potassium 4.1, Sodium 140.0, Chloride 103.0, Glucose 95, Lactate 1.2, FiO2 21.0, Venous Blood Potassium 4.1 12/17/17 09:35: PT 12.4, INR 1.08, APTT 33.8 12/17/17 09:35: WBC 9.6, RBC 4.87, Hgb 15.0, Hct 42.9, MCV 88.1, MCH 30.8, MCHC 35.0, RDW 12.9, Plt Count 290, MPV 10.4, Gran % 67.3, Lymph % (Auto) 25.5, [place] % (Auto) 6.2 H, Eos % (Auto) 0.6 L, Baso % (Auto) 0.4, Gran # 6.45, Lymph # 2.4 , [place] # 0.6, Eos # 0.1, Baso # 0.04 12/17/17 08:16: Urine Color Yellow, Urine Appearance Clear, Urine pH 6.0, Ur Specific [place] 1.025, Urine Protein Negative, Urine Glucose (UA) Negative, Urine Ketones Negative, Urine Blood Small H, Urine Nitrate Negative, Urine Bilirubin Negative, Urine Urobilinogen 0.2, Ur Leukocyte Esterase Small H, Urine RBC 2 - 5, Urine WBC 5 - 10, Ur Epithelial Cells 4 - 5, Amorphous Sediment Few, Urine Bacteria Many, Urine Other [place] I have reviewed the lab results: Yes - RAD Interpretation Radiology Orders: 12/17/17 07:29 CHEST PORTABLE [RAD] Stat 12/17/17 07:31 ABDOMEN COMPLETE [US] Stat - EKG Interpretation Interpreted by ED Physician: Yes Type: 12 lead EKG - Medication Orders Current Medication Orders: Discontinued Medications Sodium Chloride (Sodium Chloride 0.9%) 500 mls @ 500 mls/hr IV ONCE ONE Stop: 12/17/17 08:29 Last Admin: 12/17/17 10:27 Dose: 500 mls/hr eMAR Start Stop Document 12/17/17 10:27 OCS (Rec: 12/17/17 10:27 OCS [id number]) Intravenous Solution Start Date 12/17/17 Start Time 10:27 End Date 12/17/17 End time 11:27 Total Infusion Time 60 Ondansetron HCl (Zofran Inj) 4 mg IVP ONCE ONE Stop: 12/17/17 07:31 Last Admin: 12/17/17 10:27 Dose: 4 mg IVP Administration Document 12/17/17 10:27 OCS (Rec: 12/17/17 10:27 OCS [id number]) Charges for Administration # of IVP Administrations 1 Pantoprazole Sodium (Protonix Inj) 40 mg IVP ONCE STA Stop: 12/17/17 07:31 Last Admin: 12/17/17 10:27 Dose: 40 mg IVP Administration Document 12/17/17 10:27 OCS (Rec: 12/17/17 10:27 [facility] [id number]) Charges for Administration # of IVP Administrations 1 - Scribe Statement The provider has reviewed the documentation as recorded by the Vince Malloy Provider Scribe Attestation: All medical record entries made by the Vince were at my direction and personally dictated by me. I have reviewed the chart and agree that the record accurately reflects my personal performance of the history, physical exam, medical decision making, and the department course for this patient. I have also personally directed, reviewed, and agree with the discharge instructions and disposition. Disposition/Present on Arrival - Present on Arrival Any Indicators Present on Arrival: No History of DVT/PE: No History of Uncontrolled Diabetes: No Urinary Catheter: No History of Decub. Ulcer: No History Surgical Site Infection Following: None - Disposition Have Diagnosis and Disposition been Completed?: Yes Diagnosis: Depression, Anxiety Disposition: HOSPITALIZED Disposition Time: 14:06 Patient Plan: Admission Condition: GOOD Forms: [employer] ([place])
[2017-12-17] MEDS ORDERED: Sodium Chloride 0.9% 500 ML IV ONE (07:30)
[2017-12-17 08:38] LABS: URINE APPEARANCE CLEAR (CLEAR); URINE BILIRUBIN NEGATIVE (NEGATIVE); URINE BLOOD SMALL (NEGATIVE); URINE COLOR YELLOW (YELLOW); URINE GLUCOSE (UA) NEGATIVE (NEGATIVE); URINE LEUKOCYTE ESTERASE SMALL Leu/uL (NEGATIVE); URINE NITRATE NEGATIVE (NEGATIVE); URINE PROTEIN NEGATIVE mg/dL (<30 mg/dL); URINE UROBILINOGEN 0.2 E.U./dL (<1 E.U./dL)
[2017-12-17 08:42] LABS: URINE AMORPHOUS SEDIMENT FEW; URINE BACTERIA MANY (NEG)
--- NOTE | 2017-12-17 08:57 | US ---
HISTORY: pain COMPARISON: None. TECHNIQUE: Sonographic evaluation of the abdomen. FINDINGS: LIVER: Measures 14.4 cm. Normal echogenicity of the liver parenchyma. No mass. No intrahepatic bile duct dilatation. GALLBLADDER: Cholelithiasis. No mural thickening. No pericholecystic fluid. Negative sonographic Kumar sign. COMMON BILE DUCT: Measures 4 mm. No stones. No dilatation. PANCREAS: Unremarkable as visualized. No mass. No ductal dilatation. RIGHT KIDNEY: Measures 12.9cm. Normal echogenicity. No calculus, mass, or hydronephrosis. LEFT KIDNEY: Measures 12.4cm. Normal echogenicity. No calculus, mass, or hydronephrosis. SPLEEN: Normal in size and contour. No mass. AORTA: No aneurysmal dilatation. IVC: Unremarkable. OTHER FINDINGS: None. IMPRESSION: Cholelithiasis without sonographic evidence of cholecystitis.
[2017-12-17 09:47] LABS: BASO # 0.04 K/mm3 (0.0-2.0); BASO % 0.4 % (0.0-3.0); EOS # 0.1 (0.0-0.7); EOS % 0.6 % (1.5-5.0); GRAN # 6.45 (1.4-6.5); GRAN % 67.3 % (50.0-68.0); LYMPH # 2.4 (1.2-3.4); LYMPH % 25.5 % (22.0-35.0); MEAN CELL VOLUME 88.1 fl (80.0-105.0); MEAN CORPUSCULAR HEMOGLOBIN 30.8 pg (25.0-35.0); MEAN PLATELET VOLUME 10.4 fl (7.0-11.0); MONO # 0.6 (0.1-0.6); MONO % 6.2 % (1.0-6.0); RBC 4.87 10^6/uL (3.5-6.1); RED CELL DISTRIBUTION WIDTH 12.9 % (11.5-14.5); VENOUS BLOOD GAS PO2 45 mm/Hg (30-55); WHITE BLOOD COUNT 9.6 10^3/ul (4.5-11.0)
[2017-12-17 09:59] LABS: INR 1.08 (0.93-1.08); PARTIAL THROMBOPLASTIN TIME 33.8 Seconds (25.1-36.5); PROTHROMBIN TIME 12.4 SECONDS (9.4-12.5)
[2017-12-17 10:01] LABS: ALB/GLOB RATIO 1.3 (1.1-1.8); ALBUMIN 4.4 g/dL (3.0-4.8); ALT/SGPT 39 U/L (7-56); AST/SGOT 26 U/L (14-36); BLOOD UREA NITROGEN 11 mg/dL (7-21); CALCIUM 10.3 mg/dL (8.4-10.5); GFR AFRICAN-AMERICAN > 60; GFR NON-AFRICAN AMERICAN > 60; LIPASE 165 U/L (23-300)
[2017-12-17 10:10] LABS: TROPONIN I < 0.01 ng/mL
[2017-12-17 12:17] VITALS: O2SAT 96
--- NOTE | 2017-12-17 14:05 | RAD ---
HISTORY: ap COMPARISON: 08/29/2017 FINDINGS: LUNGS: No active pulmonary disease. PLEURA: No significant pleural effusion identified, no pneumothorax apparent. CARDIOVASCULAR: Normal. OSSEOUS STRUCTURES: No significant abnormalities. VISUALIZED UPPER ABDOMEN: Normal. OTHER FINDINGS: None. IMPRESSION: No active disease.
--- NOTE | 2017-12-17 17:26 | CARD ---
APPROVED REPORT EKG Measurement Heart [id number] <Conclusion> Normal sinus rhythm Inferior infarct, age undetermined Abnormal ECG
[2017-12-17] MEDS ORDERED: Magnesium Hydroxide Susp 30 ml UD PO PRN (21:08)
[2017-12-17] MEDS ORDERED: Alum-Mag Hydrox-Simethicone Susp (30 mL) PO PRN (21:08)
[2017-12-18 00:36] VITALS: RESP 20
--- NOTE | 2017-12-18 00:50 | PCM.BM ---
<Sudha Montez - Last Filed: 12/18/17 00:48> Treatment Plan Problems - Problems identified on initial assessmt DEBILITATING ANXIETY Date Initiated: 12/18/17 Time Initiated: 23:00 Assessment reference: NA Status: Active DEPRESSION Date Initiated: 12/17/17 Treatment assets and liabiliti Patient Assests: adapts well, cooperative, educated, insightful, self-reliant, ADL independent, negotiates basic needs, cognitively intact Patient Liabilities: live alone, financial problems, medical problems - Milieu Protocol Maintain good personal hygiene: every other day Encourage regular showers, every shift Remind patient to perform daily oral care, every shift Assist patient to perform ADL's Maintain personal safety: every shift Educate patient to report safety concerns to staff, every shift Monitor environment for contraband/sharps Medication safety: Monitor for expected outcome, potential side effects: every shift, Assess barriers to learning: every shift, Assess readiness for medication education: every shift Family Contact Family involvement: Family/SO is involved Discharge/Continuing Care - Education Needs Education Needs: Patient Medication, Patient Diagnosis/Disease Process, Patient Coping Skills, Patient Activities of Daily Living, Patient Pain, Patient Nutrition, Patient Health Practices/Safety, Patient Aftercare Safety Plan - Discharge Discharge Criteria: Tolerates medication w/o severe side effects, Free of Suicidal thoughts, Normal sleep pattern, Ability to care for self <Shaylee Hope Y - Last Filed: 12/18/17 12:49> Family Contact Family contact: Patient agrees to contact Family contact name: Kym Gong(sister) [phone] Family contacted how many times per week?: 2 - Outside Agency [facility] Care involvment: Not involved <Lyubov Scales - Last Filed: 12/18/17 14:53> - Diagnosis (1) MDD (major depressive disorder) Status: Acute Interventions: 12/18/17 14:52 Psychoeducation Psychopharmacology/adjustment of medications as needed/ monitoring possible side effects Evaluate pt on daily basis Compliance with medications and follow up appointments Suicide and homicide risk assessment and prevention Relapse prevention Reduction of symptoms Improve functional status Family involvement As outpatient: cognitive behavioral therapy (2) JG (generalized anxiety disorder) Status: Acute Interventions: 12/18/17 14:52 Psychoeducation Psychopharmacology/adjustment of medications as needed/ monitoring possible side effects Evaluate pt on daily basis Discussion of importance of being compliant with medications and follow up appointments Suicide and homicide risk assessment and prevention, coping strategies, safety plan Reduction of symptoms Relaxation techniques and breathing exercises Improve functional status Family involvement Cognitive behavioral therapy as outpatient
[2017-12-18] MEDS ORDERED: Aspirin 325 mg EC Tablets PO SCH (08:00)
[2017-12-18 08:29] LABS: GLUCOSE,FASTING 105 mg/dL (65-110); HDL CHOLESTEROL 38 mg/dL (29-60)
[2017-12-18 08:40] LABS: LDL CHOLESTEROL 116 mg/dL (0-129)
--- NOTE | 2017-12-18 10:15 | CP.PCM.CON ---
<Alyssa Palmer - Last Filed: 12/18/17 10:36> History of Present Illness - History of Present Illness History of Present Illness: Gastroenterology Fellow/PGY5 Consult Note 52 year old male with history of Hypertension, Hyperlipidemia, and Diabetes currently in behavioral health on psych unit for anxiety. GI consultation for dyspepsia and bright red blood per rectum. Patient admits to eating take out which likely included tomato, garlic,and onions followed by a "weird sensation" in her chest and upper stomach area likely related to indigestion and heartburn. Admits to intermittent nausea without vomiting. No prior PPI use. Admits to intermittent hard stools every 1-2 days with small amounts of BRBPR with wiping and history of anal fissure in the past. Denies hematemesis, chest pain, shortness of breath, diaphoresis, chills, sweats, fevers, diarrhea, melena , sick contacts, recent travel, recent antibiotics, yellowing of her eye, or skin, or unintentional weight loss. No prior EGD or colonoscopy. Family- mother- lung cancer; denies stomach cancer, colon cancer Social- social alcohol use, denies tobacco or illicit drug use Surgery- none Review of Systems - Review of Systems Review of Systems: 12-point review of systems negative except for as above Past Patient History - Past Social History Smoking Status: Never Smoked - CARDIAC Hx Cardiac Disorders: Yes (hyperlipidemia) Hx Hypertension: Yes - PULMONARY Hx Respiratory Disorders: No - NEUROLOGICAL Hx Neurological Disorder: No - HEENT Hx HEENT Problems: No - RENAL Hx Chronic Kidney Disease: No - ENDOCRINE/METABOLIC Hx Endocrine Disorders: No - HEMATOLOGICAL/ONCOLOGICAL Hx Blood Disorders: No - INTEGUMENTARY Hx Dermatological Problems: No - MUSCULOSKELETAL/RHEUMATOLOGICAL Hx Musculoskeletal Disorders: No Hx Arthritis: (joint pains) Hx Falls: No - GASTROINTESTINAL Hx Gall Bladder Disease: Yes (cholelitiasis) - GENITOURINARY/GYNECOLOGICAL Hx Genitourinary Disorders: No - PSYCHIATRIC Hx Psychophysiologic Disorder: Yes Hx Anxiety: Yes Hx Depression: Yes Hx Substance Use: No - SURGICAL HISTORY Hx Surgeries: No Meds Allergies/Adverse Reactions: Allergies Allergy/AdvReac Type Severity Reaction Status Date / Time No Known Allergies Allergy Verified 12/18/17 00:00 - Medications Medications: Current Medications Acetaminophen (Tylenol 325mg Tab) 650 mg PO Q4H PRN PRN Reason: Pain, Mild (1-3) Al Hydrox/Mg Hydrox/Simethicone (Maalox Plus 30 Ml) 30 ml PO DAILY PRN PRN Reason: Upset Stomach Aspirin (Ecotrin) 81 mg PO DAILY [facility] Atorvastatin Calcium (Lipitor) 20 mg PO Q48H [facility] Hydrochlorothiazide (Hydrodiuril) 25 mg PO DAILY [facility] Last Admin: 12/18/17 09:26 Dose: 25 mg Lorazepam (Ativan) 2 mg IM Q6 PRN; Protocol PRN Reason: Agitation Lorazepam (Ativan) 2 mg PO Q6H PRN; Protocol PRN Reason: Anxiety Last Admin: 12/17/17 23:37 Dose: 2 mg Losartan Potassium (Cozaar) 100 mg PO DAILY [facility] Last Admin: 12/18/17 09:21 Dose: 100 mg Magnesium Hydroxide (Milk Of Magnesia) 30 ml PO DAILY PRN PRN Reason: Constipation Metoprolol Tartrate (Lopressor) 25 mg PO BID [facility] Last Admin: 12/18/17 09:25 Dose: 25 mg Nitrofurantoin Macrocrystals (Macrobid) 100 mg PO Q12 [facility] Last Admin: 12/18/17 09:33 Dose: 100 mg Sertraline HCl (Zoloft) 50 mg PO HS [facility] Last Admin: 12/17/17 22:42 Dose: 50 mg Zaleplon (Sonata) 5 mg PO HS PRN PRN Reason: Insomnia Physical Exam - Constitutional Appears: Non-toxic, No Acute Distress - Head Exam Head Exam: ATRAUMATIC, NORMOCEPHALIC - Eye Exam Eye Exam: EOMI, PERRL Pupil Exam: PERRL. absent: Miosis, Mydriatic - ENT Exam ENT Exam: Mucous Membranes Moist, Normal Oropharynx - Neck Exam Neck exam: Positive for: Full Rom, Normal Inspection - Respiratory Exam Respiratory Exam: Clear to Auscultation Bilateral. absent: Rales, Rhonchi, Wheezes - Cardiovascular Exam Cardiovascular Exam: RRR, +S1, +S2. absent: Gallop, Rubs - GI/Abdominal Exam GI & Abdominal Exam: Normal Bowel Sounds, Soft. absent: Distended, Firm, Guarding, Organomegaly, Rigid, Tenderness - Extremities Exam Extremities exam: Positive for: normal inspection. Negative for: pedal edema - Neurological Exam Neurological exam: Alert - Psychiatric Exam Psychiatric exam: Anxious, Depressed, Flat Affect - Skin Skin Exam: Dry, Intact, Normal Color, Warm Results - Vital Signs Recent Vital Signs: Last Vital Signs Temp 98.0 F 12/18/17 07:42 Pulse 71 12/18/17 09:25 Resp 20 12/18/17 07:42 BP 120/72 12/18/17 09:25 Pulse Ox 96 12/17/17 21:32 - Labs Result Diagrams: 12/17/17 09:35 12/17/17 09:35 Labs: Laboratory Results - last 24 hr 12/18/17 12/18/17 07:45 07:45 Fasting Glucose 105 Triglycerides 99 Cholesterol 177 LDL Cholesterol Direct 116 HDL Cholesterol 38 TSH 3rd Generation 0.85 Assessment & Plan - Assessment and Plan (Free Text) Assessment: 52 year old male with history of Hypertension, Hyperlipidemia, and Diabetes currently in behavioral health on psych unit for depression/anxiety. GI consultation for heartburn and bright red blood per rectum likely 2/2 dyspepsia 2/2 food triggers and constipation. No prior EGD or colonoscopy. Plan: >start PPI 30 minutes before breakfast for 6-8 week trial >Miralax daily and Colace BID >Prep-H RC BID >heart healthy diet- avoid acidic based foods >small, frequent, low fat meals in setting of history of Diabetes >lifestyle modifications- sit upright after meals >U/S- cholelithiasis, no prior imaging to compare >normal LFTs, afebrile >normal stress test 02/2016 >normal LV EF function with Grade1 diastolic dysfunction on ECHO 01/2016 >if symptoms don't improve after 6-8 PPI trial consider EGD for further evaluation >recommend elective outpatient colonoscopy for CRC screening and BRBPR to ensure no other cause with history of anal fissure <[facility] - Last Filed: 12/18/17 12:55> Meds - Medications Medications: Current Medications Acetaminophen (Tylenol 325mg Tab) 650 mg PO Q4H PRN PRN Reason: Pain, Mild (1-3) Al Hydrox/Mg Hydrox/Simethicone (Maalox Plus 30 Ml) 30 ml PO DAILY PRN PRN Reason: Upset Stomach Aspirin (Ecotrin) 81 mg PO DAILY [facility] Atorvastatin Calcium (Lipitor) 20 mg PO Q48H [facility] Hydrochlorothiazide (Hydrodiuril) 25 mg PO DAILY [facility] Last Admin: 12/18/17 09:26 Dose: 25 mg Hydrocortisone (Anusol-Hc) 0 gm [place] BID [facility] Hydroxyzine Pamoate (Vistaril) 25 mg PO BID [facility] PRN Reason: Protocol Lorazepam (Ativan) 2 mg IM Q6 PRN; Protocol PRN Reason: Agitation Lorazepam (Ativan) 2 mg PO Q6H PRN; Protocol PRN Reason: Anxiety Last Admin: 12/17/17 23:37 Dose: 2 mg Losartan Potassium (Cozaar) 100 mg PO DAILY [facility] Last Admin: 12/18/17 09:21 Dose: 100 mg Magnesium Hydroxide (Milk Of Magnesia) 30 ml PO DAILY PRN PRN Reason: Constipation Metoprolol Tartrate (Lopressor) 25 mg PO BID [facility] Last Admin: 12/18/17 09:25 Dose: 25 mg Nitrofurantoin Macrocrystals (Macrobid) 100 mg PO Q12 [facility] Last Admin: 12/18/17 09:33 Dose: 100 mg Pantoprazole Sodium (Protonix Ec Tab) 40 mg PO 0600 [facility] Paroxetine HCl (Paxil) 5 mg PO HS [facility] Polyethylene Glycol (Miralax) 17 gm PO DAILY [facility] Sertraline HCl (Zoloft) 50 mg PO HS [facility] Last Admin: 12/17/17 22:42 Dose: 50 mg Zaleplon (Sonata) 5 mg PO HS PRN PRN Reason: Insomnia Results - Vital Signs Recent Vital Signs: Last Vital Signs Temp 98.0 F 12/18/17 07:42 Pulse 71 12/18/17 09:25 Resp 20 12/18/17 07:42 BP 120/72 12/18/17 09:25 Pulse Ox 96 12/17/17 21:32 - Labs Result Diagrams: 12/17/17 09:35 12/17/17 09:35 Labs: Laboratory Results - last 24 hr 12/18/17 12/18/17 07:45 07:45 Fasting Glucose 105 Triglycerides 99 Cholesterol 177 LDL Cholesterol Direct 116 HDL Cholesterol 38 TSH 3rd Generation 0.85 Attending/Attestation - Attestation I have personally seen and examined this patient.: Yes I have fully participated in the care of the patient.: Yes I have reviewed all pertinent clinical information: Yes Notes (Text): 12/18/17 12:52 This is a 52 year old female with history of Hypertension, Hyperlipidemia, and Diabetes currently in behavioral health on psych unit for depression/anxiety. GI consultation for contipation and history of anal fissure treated in 2016 by [facility] in 2016. She is scheduled for colonoscopy on 12/28/17. Denoes rectal pain. Has intermittent hard bowel movements for which will prescribe miralax daily. She denies GERD, heartburn or epigastric pain or dark stools. Wants to follow with non [facility] as scheduled due to insurance issues. Thank you for letting us participate in the care of your patient
[2017-12-18] MEDS: POLYETHYLENE GLYCOL 3350 17 GM/Dose PACKET PO SCH (13:23)
--- NOTE | 2017-12-18 14:47 | PCM.PSYCH ---
Initial Psychiatric Evaluation - Initial Psychiatric Evaluation Type of Admission: Voluntary Legal Status: Capacity (pt has capacity to sign consent for treatment) Chief Complaint (in patient's own words): "It is little too complicated, I was very anxious, I was not able to function, I was constantly on the internet, checking my symptoms, for example I thought I did not have fistula, but may be I have cancer..., at the same time I am afraid of colonoscopy, I understand it is irrational, but I am afraid that I am going to under anesthesia..., I was not able to sleep, I have no appetite, I lost 20+pounds for the past two months..." Patient's Reaction to Hospitalization: pt was admitted for evaluation of worsening of depression, worsening anxiety, inability of function. History of Present Illness and Precipitating Events: shortly patient is 52 year old female, self reported a history depression and anxiety, denied previous psychiatric admissions, denied h/o suicidal attempts, pt has multiple medical problems including HTN, GI fistula, dyslipidemia, strong family h/o mental illness of schizophrenia and bipolar spectrum, came to the hospital for abdominal discomfort, ED physician was concerned about pt's presentation, pt was anxious, tearful and it was the second visit to ED for the past week (12/12/17 and 12/17/17) for the similar symptoms and psychiatric evaluation was called. during the initial evaluation at ED by PES pt was found to be very anxious, difficulties to concentrate, depressed, tearful, pt mentioned that unintentionally she lost 20 Lb for the past two months, was refusing to have medical tests done (colonoscopy), pt had scheduled appt with Dr.Paul Parisi (local psychiatrist) today 12/18/17, but was not able to wait till the morning time to see the psychiatrist and requested psych admission. pt was seen today at the morning at the treatment team meeting, pt presented with acceptable personal hygiene, but appears to be careless for her appearance , long/uncombed hair, pulled back to the ponytail, no make up, dark circles under eyes, tearful, flat and depressed affect, good ADLs. pt said that she went through a lot of losses, pt's boyfriend of 10+years 4years ago, pt still blames herself for not doing more that she did, pt said that she lost her mother in 1992 because of lung cancer, father of heart attack in 1996, pt has only one sister who has multiple medical problems. Pt said that she was always depressed but now "it is out of control, I am crying for small little things, I cannot sleep, maximum I sleep for couple of hours", pt said that she is not suicidal or homicidal but her symptoms are affecting her functionality, pt said that she is afraid of dying and that is why she refused to have colonoscopy "I know it is irrational but I am afraid that I will never wake up after anesthesia". pt said that she lost 20+Lb unintentionally because she lost her appetite for the past two months. "I used to be resilient in crisis situations, but now I feel I not able to handle anything" pt reproted that she feels "constant state of nervousness" pt said that she is worried about her medical issues "it is out of control, I am cheking and rechecking my symptoms, I feel like I have no fistula but I have a cancer, then I am worried about my health, about future, about bills, about my sister...". pt said that she has episodes when she could feel her chest is tight, difficulties to breath, shakines, fear of dying which brought pt to ED on . pt said that her GI doctor prescribed zoloft on 12/09/17 after what "I feel worse , I feel more anxious". pt denied manic symptoms, none identified. pt denied v/a/t hallucinations, denied paranoid ideation. Past psych h/o: GI prescribed zoloft, but pt was more anxious on this medication , prescribed paxil and ativan, but pt did not feel comfortable to take meds. Medical h/o: see above. Social h/o: pt lives alone, works, no h/o drugs or alcohol or smoking. Family h/o; strong family h/o mental illness, pt has h/o bipolar and ? schizophrenia, alcohol addiction, tried to commit suicide. sister is on disability due to bipolar disorder, currently on valium, vistaril, zoloft, xanax. pt made a request she does not want to be on medication which potentially could give addiction. this technical report writer educated about paxil at night and vistaril for anxiety. risk/benefits and alternatives discussed. 12/17/17 09:35 12/17/17 09:35 Lab Results 12/18/17 07:45: TSH 3rd Generation 0.85 12/18/17 07:45: Fasting Glucose 105, Triglycerides 99, Cholesterol 177, LDL Cholesterol Direct 116, HDL Cholesterol 38 12/17/17 09:35: Sodium 142, Chloride 104, Potassium 3.7, Carbon Dioxide 26, Anion Gap 15, BUN 11, Creatinine 0.6 L, Est GFR ( Amer) > 60, Est GFR ( Non-Af Amer) > 60, Random Glucose 95, Calcium 10.3, Total Bilirubin 0.7, AST 26 , ALT 39, Alkaline Phosphatase 63, Lactate Dehydrogenase 413, Total Creatine Kinase 46, Troponin I < 0.01, Total Protein 7.7, Albumin 4.4, Globulin 3.3, Albumin/Globulin Ratio 1.3, Lipase 165 12/17/17 09:35: pO2 45, VBG pH 7.40, VBG pCO2 46.0, VBG HCO3 28.5 H, VBG Total CO2 29.9 H, VBG O2 Sat (Calc) 88.1 H, VBG Base Excess 3.0 H, VBG Potassium 4.1, Sodium 140.0, Chloride 103.0, Glucose 95, Lactate 1.2, FiO2 21.0, Venous Blood Potassium 4.1 12/17/17 09:35: PT 12.4, INR 1.08, APTT 33.8 12/17/17 09:35: WBC 9.6, RBC 4.87, Hgb 15.0, Hct 42.9, MCV 88.1, MCH 30.8, MCHC 35.0, RDW 12.9, Plt Count 290, MPV 10.4, Gran % 67.3, Lymph % (Auto) 25.5, [place] % (Auto) 6.2 H, Eos % (Auto) 0.6 L, Baso % (Auto) 0.4, Gran # 6.45, Lymph # 2.4 , [place] # 0.6, Eos # 0.1, Baso # 0.04 12/17/17 08:16: Urine Color Yellow, Urine Appearance Clear, Urine pH 6.0, Ur Specific [place] 1.025, Urine Protein Negative, Urine Glucose (UA) Negative, Urine Ketones Negative, Urine Blood Small H, Urine Nitrate Negative, Urine Bilirubin Negative, Urine Urobilinogen 0.2, Ur Leukocyte Esterase Small H, Urine RBC 2 - 5, Urine WBC 5 - 10, Ur Epithelial Cells 4 - 5, Amorphous Sediment Few, Urine Bacteria Many, Urine Other [place] Vital Signs Temp Pulse Resp BP Pulse Ox 12/18/17 09:25 71 120/72 12/18/17 07:42 98.0 F 71 20 120/72 12/18/17 07:27 98.0 F 74 20 98/59 L 12/17/17 23:50 98.0 F 67 20 120/88 12/17/17 21:32 61 18 115/73 96 12/17/17 19:11 63 18 111/68 96 12/17/17 18:58 68 18 125/69 96 12/17/17 16:52 64 18 129/74 96 12/17/17 15:05 74 18 132/83 96 12/17/17 12:15 98.9 F 61 18 141/82 96 12/17/17 09:14 98.9 F 63 18 125/82 97 12/17/17 06:09 72 18 130/77 97 12/17/17 06:00 97.8 F Current Medications: Active Medications Generic Name Dose Route Start Last Admin Trade Name Freq PRN Reason Stop Dose Admin Acetaminophen 650 mg 12/17/17 21:08 Tylenol 325mg Tab PO Q4H PRN Pain, Mild (1-3) Al Hydrox/Mg Hydrox/Simethicone 30 ml 12/17/17 21:08 Maalox Plus 30 Ml PO DAILY PRN Upset Stomach Aspirin 81 mg 12/19/17 08:00 Ecotrin PO DAILY DELBERT Atorvastatin Calcium 20 mg 12/18/17 18:00 Lipitor PO Q48H DELBERT Hydrochlorothiazide 25 mg 12/18/17 08:00 Hydrodiuril PO DAILY DELBERT Lorazepam 2 mg 12/17/17 21:09 Ativan IM Q6 PRN Agitation Protocol Lorazepam 2 mg 12/17/17 21:10 12/17/17 23:37 Ativan PO 2 mg Q6H PRN Administration Anxiety Protocol Losartan Potassium 100 mg 12/18/17 08:00 Cozaar PO DAILY DELBERT Magnesium Hydroxide 30 ml 12/17/17 21:08 Milk Of Magnesia PO DAILY PRN Constipation Metoprolol Tartrate 25 mg 12/18/17 08:00 Lopressor PO BID DELBERT Nitrofurantoin Macrocrystals 100 mg 12/18/17 09:00 Macrobid PO Q12 DELBERT Sertraline HCl 50 mg 12/17/17 22:00 12/17/17 22:42 Zoloft PO 50 mg HS [facility] Administration Zaleplon 5 mg 12/17/17 21:08 Sonata PO HS PRN Insomnia Past Psychiatric History - Past Psychiatric History Previous Treatment History: None Prior Professional Help: see HPI Prior Psychiatric Treatment: see HPI At [facility]: see HPI Duration: see HPI Nature of Treatment: see HPI Explanation of prior treatment: see HPI History of Abuse: denied History of ETOH/Drug Use: denied History of Family Illness: see HPI Pertinent Medical Hx (Current Medical&Sleep Prob, Allergies): Allergies Allergy/AdvReac Type Severity Reaction Status Date / Time No Known Allergies Allergy Verified 12/18/17 00:00 Metoprolol Tartrate [Lopressor] 25 mg PO BID #60 tab 01/30/16 Losartan/Hydrochlorothiazide [Hyzaar 100-25 Tablet] 1 tab PO DAILY 03/16/16 Aspirin [Ecotrin] 81 mg PO HS 08/29/17 Atorvastatin [Lipitor] 20 mg PO .EVERY OTHER DAY 08/29/17 Sertraline [Zoloft] 50 mg PO HS 12/12/17 Review of Systems - Review of Systems Systems not reviewed;Unavailable: Acuity of Condition - EENT Eyes: As Per HPI Ears: As Per HPI Nose/Mouth/Throat: As Per HPI - Breasts Breasts: As Per HPI - Cardiovascular Cardiovascular: As Per HPI - Respiratory Respiratory: As Per HPI - Gastrointestinal Gastrointestinal: As Per HPI - Genitourinary Genitourinary: As Per HPI - Reproductive: Female Reproductive:Female: As Per HPI - Menstruation Menstruation: As Per HPI - Musculoskeletal Musculoskeletal: As Par HPI - Integumentary Integumentary: As Per HPI - Neurological Neurological: As Per HPI - Psychiatric Psychiatric: As Per HPI - Endocrine Endocrine: As Per HPI - Hematologic/Lymphatic Hematologic: As Per HPI Mental Status Examination - Personal Presentation Personal Presentation: Looks stated age - Affect Affect: Flat, Other (tearful/anxious) - Motor Activity Motor Activity: Psychomotor Retardation - Reliability in Providing Information Reliability in Providing Information: Fair - Speech Speech: Other (circumstantial) - Mood Mood: Depressed, Anxious - Formal Thought Process Formal Thought Process: No Impairment - Obsessions/Compulsions Obsessions: None Compulsions: None - Cognitive Functions Orientation: Person, Place, Situation, Time Sensorium: Alert Attention/Concentration: Easily distracted Abstract Thinking: As evidence by abstract perception of proverbs Estimate of Intelligence: Below average Judgement: Intact, as evidence by: Insight regarding need for hospitalization - Risk Risk: Self-mutilation, Diminished functioning - Strength & Assets Inventory Strength & Assets Inventory: Intelligence, Education, Employment status, Employment history, Life experience, Cooperative - Limitations Limitations: Living alone, Other (multiple medical problems, poor support) DSM 5 DX - DSM 5 DSM 5 Diagnosis: r/o MDD with no psychosis r/o JG r/o panic disorder r/o mood and anxiety due to [facility] - Recommended/Plan of Treatment Treatment Recommendations and Plan of Treatment: Milieu/structure/supportive therapy Medical consult appreciated, see medical team note for more detailed info SW consultation for discharge plan and social issues Med management will continue home meds: Metoprolol Tartrate [Lopressor] 25 mg PO BID Losartan/Hydrochlorothiazide [Hyzaar 100-25 Tablet] 1 tab PO DAILY Aspirin [Ecotrin] 81 mg PO HS Atorvastatin [Lipitor] 20 mg PO .EVERY OTHER DAY Sertraline will be d/c paxil 5mg po hs for depression and anxiety vistaril 25mg po bid anxiety GI consult, possible colonoscopy medical consult Family involvement Follow up on labs Will monitor closely Pt was educated about risk/benefits and alternatives of medications, coping strategies (safety plan, suicide prevention), relapse prevention, importance of follow up with psychiatrist and therapist, stay away from drugs/alcohol/smoking Projected ELOS: 4days Prognosis: fair Discharge Plan and Discharge Criteria: Pt will be not depressed or manic, will be more hopeful, will be not psychotic or anxious, will be not having thoughts of harming self or others, will be tolerating medications well, will not have major side effects, will be able to function, will not pose threat to self or others. - Smoking Cessation Smoking Cessation Initiated: No Reason for not providing: pt denied smoking
[2017-12-18] MEDS: Hydrocortisone 2.5% Rectal Cream(30 gm) PR SCH (18:09)
--- NOTE | 2017-12-19 00:49 | CON ---
DATE: 12/18/2017 CARDIOLOGY CONSULTATION HISTORY OF PRESENT ILLNESS: The patient is a 53-year-old woman admitted for depression with psych evaluation. I was asked to see her because EKG computer read with an old inferior wall AR. Patient's past medical history is notable for hypertension and hypercholesterolemia. She was evaluated at [facility], [place] where she underwent a stress echo. The stress echo was reported to be unremarkable. She denies chest pain, denies shortness of breath. SOCIAL HISTORY: She denies smoking. REVIEW OF SYSTEMS: A 14-point review of systems is reviewed in detail. No cardiac symptomatology is noted. PHYSICAL EXAMINATION: VITAL SIGNS: The blood pressure is 120/72, the heart rate is in the 70s. NECK: Negative JVD. LUNGS: Without rales. HEART: Reveals S1, S2. EXTREMITIES: Without edema. EKG shows Qs in the inferior leads, which more likely is due to her rightward axis deviation. Troponin is negative x1. The rest for her labs is unremarkable. IMPRESSION: 1. Depression. 2. Hypertension. 3. Hypercholesterolemia. 4. EKG, which shows Qs in the inferior leads does not represent an inferior wall myocardial infarction. She has had multiple cardiac testing, which does not show evidence for an inferior wall myocardial infarction. The Qs in the inferior leads are likely due to her rightward axis deviation. No further cardiac workup is necessary. Omid Squires MD
[2017-12-19] MEDS: Pantoprazole 40 mg EC Tab PO SCH (06:53)
[2017-12-19 07:42] VITALS: TEMP 98.1
--- NOTE | 2017-12-19 08:06 | CON ---
DATE: 12/18/2017 HISTORY OF PRESENT ILLNESS: I saw her in the psychiatric floor, resting comfortably in bed. She is a 52-year-old female who had some abdominal pain and nauseousness. She had similar symptoms in the past. She did have a CAT scan in the past and she is just not feeling well. She has a past medical history of hypertension, hyperlipidemia, diabetes, anxiety. She is fairly anxious at this time. She had high cholesterol, hypertension, bilateral leg edema. She has joint pains, anxiety, depression. FAMILY HISTORY: No known family history. SOCIAL HISTORY: Never smoked. No alcohol. No drugs. ALLERGIES: NO KNOWN DRUG ALLERGIES. MEDICATIONS: She takes Hyzaar, Ecotrin, Lipitor, Zoloft. REVIEW OF SYSTEMS: No fevers. No vision changes. No hearing changes. No sore throat. No shortness of breath. No chest pain. There is abdominal pain and nausea. No vomiting. No diarrhea. She has back pain. No neck pain. No headache or dizziness. PHYSICAL EXAMINATION: GENERAL: She is alert and oriented x3, well appearing, sitting up in bed. She is complaining of right-sided abdominal pain. VITAL SIGNS: She has a 98.9 temperature, 61 pulse, 18 respiratory rate, 141/82 blood pressure, 96% O2 sat. HEENT: Head is atraumatic, normocephalic. Pupils are reactive to light. Extraocular muscles are intact. Throat is moist. NECK: Supple. HEART: Regular rate. Normal S1 and S2. LUNGS: Clear to auscultation bilaterally. No wheezes or rhonchi. ABDOMEN: Mild tenderness. Normal bowel sounds. No guarding. No rebound. No CVA tenderness. EXTREMITIES: Have no edema at this time. NEUROLOGIC: GCS is 15. Cranial nerves II-XII grossly intact. Speech is normal. Alert and oriented x3. SKIN: Warm and dry. No apparent rashes or ulcers. LYMPH NODES: Thyroid midline. No apparent lymphadenopathy. She has abdominal pain radiating to the back, make sure this is not a gallbladder issue. LABORATORY DATA: She had multiple tests. She had urine, which has many bacteria shows the UTI. I put her on some Macrobid. Sodium 142, potassium 3.7, BUN 11, creatinine 0.6, GFR is greater than 60, sugar is 95, calcium is 7.8, total bili is 0.7. AST is 26, ALT is 39, alkaline phosphatase 53. Lactate dehydrogenase is 413. Total creatinine kinase is 46, troponin I is less than 0.01, total protein 7.7, albumin is 4.4. Sugars had been 99, cholesterol 177. LDL is 116, lipase is 165, lactate is 1.2, 1.08 INR. White count is 9.6, hemoglobin 15, hematocrit 42.9, platelets are 290,000. Chest x-ray, no active disease. EKG showed normal sinus rhythm, inferior infarct, age indeterminate. ASSESSMENT AND PLAN: I will get [facility] client services's opinion. She also had an ultrasound of the abdomen, which showed cholelithiasis without sonographic evidence of cholecystitis. I will consult GI for the abdominal pains, gallstones also.; Dr. Squires, Cardiology for the EKG changes. She is now anxious and depressed. She will be in Psychology floor. We will check her labs tomorrow. We will continue with aggressive treatment and care and will follow along. Nickolas Smalls DO
[2017-12-19 08:08] LABS: HEMOGLOBIN 13.9 g/dL (12.0-16.0); MEAN CELL VOLUME 90.2 fl (80.0-105.0); MEAN CORPUSCULAR HEMOGLOBIN 30.3 pg (25.0-35.0); MEAN CORPUSCULAR HGB CONC 33.7 g/dl (31.0-37.0); MEAN PLATELET VOLUME 10.3 fl (7.0-11.0); RBC 4.58 10^6/uL (3.5-6.1); RED CELL DISTRIBUTION WIDTH 13.3 % (11.5-14.5); WHITE BLOOD COUNT 6.8 10^3/ul (4.5-11.0)
[2017-12-19 08:47] LABS: ALB/GLOB RATIO 1.3 (1.1-1.8); ALBUMIN 3.9 g/dL (3.0-4.8); ALT/SGPT 45 U/L (7-56); AST/SGOT 33 U/L (14-36); BLOOD UREA NITROGEN 15 mg/dL (7-21); CALCIUM 10.3 mg/dL (8.4-10.5); GFR AFRICAN-AMERICAN > 60; GFR NON-AFRICAN AMERICAN > 60
[2017-12-19] MEDS: Hydrocortisone 2.5% Rectal Cream(30 gm) PR SCH ×2 (09:39→16:37)
[2017-12-19] MEDS: POLYETHYLENE GLYCOL 3350 17 GM/Dose PACKET PO SCH (09:40)
--- NOTE | 2017-12-19 14:30 | PCM.PYCHPN ---
Psychiatric Progress Note - Psychiatric Progress Note Patient seen today, length of contact: 30min Patient Chief Complaint: "I slept little better, I still feel anxious and shaky" Problems Identified/Issues Discussed: Suicide/ homicide prevention, past psychiatric h/o, current psychiatric symptoms , medical problems, risk/benefits and alternatives of medications, medications compliance, coping strategies, substance abuse h/o, relapse prevention, importance of follow up with psychiatrist and therapist, discharge plan. Medical Problems: HTN, GI fistula, dyslipidemia Diagnostic Results: 12/19/17 07:45 12/19/17 07:45 Lab Results 12/19/17 07:45: Sodium 141, Chloride 103, Potassium 4.5, Carbon Dioxide 28, Anion Gap 15, BUN 15, Creatinine 0.7, Est GFR ( Amer) > 60, Est GFR (Non- Af Amer) > 60, Random Glucose 100, Calcium 10.3, Total Bilirubin 0.7, AST 33, ALT 45, Alkaline Phosphatase 53, Total Protein 7.0, Albumin 3.9, Globulin 3.1, Albumin/Globulin Ratio 1.3 12/19/17 07:45: WBC 6.8 D, RBC 4.58, Hgb 13.9, Hct 41.3, MCV 90.2, MCH 30.3, MCHC 33.7, RDW 13.3, Plt Count 257, MPV 10.3 12/18/17 07:45: RPR Nonreactive 12/18/17 07:45: TSH 3rd Generation 0.85 12/18/17 07:45: Fasting Glucose 105, Triglycerides 99, Cholesterol 177, LDL Cholesterol Direct 116, HDL Cholesterol 38 12/17/17 09:35: Sodium 142, Chloride 104, Potassium 3.7, Carbon Dioxide 26, Anion Gap 15, BUN 11, Creatinine 0.6 L, Est GFR ( Amer) > 60, Est GFR ( Non-Af Amer) > 60, Random Glucose 95, Calcium 10.3, Total Bilirubin 0.7, AST 26 , ALT 39, Alkaline Phosphatase 63, Lactate Dehydrogenase 413, Total Creatine Kinase 46, Troponin I < 0.01, Total Protein 7.7, Albumin 4.4, Globulin 3.3, Albumin/Globulin Ratio 1.3, Lipase 165 12/17/17 09:35: pO2 45, VBG pH 7.40, VBG pCO2 46.0, VBG HCO3 28.5 H, VBG Total CO2 29.9 H, VBG O2 Sat (Calc) 88.1 H, VBG Base Excess 3.0 H, VBG Potassium 4.1, Sodium 140.0, Chloride 103.0, Glucose 95, Lactate 1.2, FiO2 21.0, Venous Blood Potassium 4.1 12/17/17 09:35: PT 12.4, INR 1.08, APTT 33.8 12/17/17 09:35: WBC 9.6, RBC 4.87, Hgb 15.0, Hct 42.9, MCV 88.1, MCH 30.8, MCHC 35.0, RDW 12.9, Plt Count 290, MPV 10.4, Gran % 67.3, Lymph % (Auto) 25.5, [place] % (Auto) 6.2 H, Eos % (Auto) 0.6 L, Baso % (Auto) 0.4, Gran # 6.45, Lymph # 2.4 , [place] # 0.6, Eos # 0.1, Baso # 0.04 12/17/17 08:16: Urine Color Yellow, Urine Appearance Clear, Urine pH 6.0, Ur Specific [place] 1.025, Urine Protein Negative, Urine Glucose (UA) Negative, Urine Ketones Negative, Urine Blood Small H, Urine Nitrate Negative, Urine Bilirubin Negative, Urine Urobilinogen 0.2, Ur Leukocyte Esterase Small H, Urine RBC 2 - 5, Urine WBC 5 - 10, Ur Epithelial Cells 4 - 5, Amorphous Sediment Few, Urine Bacteria Many, Urine Other [place] Vital Signs Temp Pulse Resp BP Pulse Ox 12/19/17 07:41 98.1 F 60 20 12/18/17 18:01 70 108/72 12/18/17 15:00 70 108/72 12/18/17 09:25 71 120/72 12/18/17 07:42 98.0 F 71 20 120/72 12/18/17 07:27 98.0 F 74 20 98/59 L 12/17/17 23:50 98.0 F 67 20 120/88 12/17/17 21:32 61 18 115/73 96 12/17/17 19:11 63 18 111/68 96 12/17/17 18:58 68 18 125/69 96 12/17/17 16:52 64 18 129/74 96 12/17/17 15:05 74 18 132/83 96 12/17/17 12:15 98.9 F 61 18 141/82 96 12/17/17 09:14 98.9 F 63 18 125/82 97 12/17/17 06:09 72 18 130/77 97 12/17/17 06:00 97.8 F DSM 5 Symptoms Update: shortly patient is 52 year old female, self reported a history depression and anxiety, denied previous psychiatric admissions, denied h/o suicidal attempts, pt has multiple medical problems including HTN, GI fistula, dyslipidemia, strong family h/o mental illness of schizophrenia and bipolar spectrum, came to the hospital for abdominal discomfort, ED physician was concerned about pt's presentation, pt was anxious, tearful and it was the second visit to ED for the past week (12/12/17 and 12/17/17) for the similar symptoms and psychiatric evaluation was called. during the initial evaluation at ED by PES pt was found to be very anxious, difficulties to concentrate, depressed, tearful, pt mentioned that unintentionally she lost 20 Lb for the past two months, was refusing to have medical tests done (colonoscopy), pt had scheduled appt with Dr.Paul Parisi (local psychiatrist)12/18/17, but was not able to wait till the morning time to see the psychiatrist and requested psych admission. pt was seen today at the morning at the treatment team meeting room, pt seems to be less anxious, affect is more reactive. pt said that she slept better last night, but still feels "very anxious and shaky". pt deems to socialize with others better. as per staff pt at times tearful, overall improving. pt tolerates meds well, no side effects observed or reported, AIMS 0, no EPS. Impression: DSM 5 Diagnosis: r/o MDD with no psychosis r/o JG r/o panic disorder r/o mood and anxiety due to [facility] Medication Change: Yes (paxil increased) Medical Record Reviewed: Yes Consults ordered or reviewed: medical consult cardiology consult GI consult all appreciated Mental Status Examination - Cognitive Function Orientation: Person, Place, Situation, Time Memory: Intact Attention: Poor Concentration: Poor Association: WNL Fund of Knowledge: WNL - Mood Mood: Depressed, Anxious - Affect Affect: Flat, Other (tearful/anxious) - Formal Thought Process Formal Thought Process: No Impairment - Suicidal Ideation Suicidal Ideation: No - Homicidal Ideation Homicidal Ideation: No Goal/Treatment Plan - Goal/Treatment Plan Need for Continued Stay: Remain at risks for inpatient hospitalization, Severe depression anxiety, Discharge may exacerbated symptoms, Severe functional impairment Progress Toward Problem(s) and Goals/Treatment Plan: Milieu/structure/supportive therapy Medical consult appreciated, see medical team note for more detailed info SW consultation for discharge plan and social issues Med management will continue home meds: Metoprolol Tartrate [Lopressor] 25 mg PO BID Losartan/Hydrochlorothiazide [Hyzaar 100-25 Tablet] 1 tab PO DAILY Aspirin [Ecotrin] 81 mg PO HS Atorvastatin [Lipitor] 20 mg PO .EVERY OTHER DAY Sertraline d/c paxil 10mg po hs for depression and anxiety vistaril 25mg po bid anxiety GI consult, possible colonoscopy medical consult Family involvement Follow up on labs Will monitor closely Pt was educated about risk/benefits and alternatives of medications, coping strategies (safety plan, suicide prevention), relapse prevention, importance of follow up with psychiatrist and therapist, stay away from drugs/alcohol/smoking Estimated Date of D/C: 12/20/17
--- NOTE | 2017-12-19 16:31 | PN ---
SUBJECTIVE: I saw her resting comfortably in her room. She is doing okay. She is here for a few reasons, anxiety and depression. She also has UTI and nauseousness. She had EKG changes. She was seen by the [facility] and it is okay. She has high cholesterol, diabetes, anemia, but she is a little bit better overall. OBJECTIVE: VITAL SIGNS: She has a 98.1 temperature, 60 pulse, 20 respiratory rate. HEENT: Head is atraumatic, normocephalic. HEART: Regular rate. LUNGS: Clear to auscultation. ABDOMEN: Soft, obese, nontender. EXTREMITIES: No edema. MEDICATIONS: She is currently on Anusol, Ativan, Colace, Cozaar, Ecotrin, HydroDIURIL, Lipitor, Lopressor, Maalox, Macrobid for UTI, milk of magnesia, MiraLax for constipation, Paxil, Protonix, Sonata, Tylenol, and Vistaril. LABORATORY DATA: She had a blood test with 6.8 white count, 13.9 hemoglobin, 41.3 hematocrit with 257 platelets. She has 141 sodium, potassium 4.5, BUN 0.7, GFR is greater than 60, sugar is 100,calcium is 10.3, total bilirubin is 0.7, AST is 33, ALT is 45, alkaline phosphatase is 53, troponin I was less than 0.01, total protein 7, TSH is 0.85. Urine was positive, she is on antibiotics. ASSESSMENT AND PLAN: The patient got nausea, vomiting, urinary tract infection, gallbladder disease, EKG changes, hypertension, high cholesterol, diabetes, anemia, anxiety, and depression. She is being seen by Cardiology, Gastroenterology, and Psychiatry. We had a very good thorough evaluation. We will continue with treatment and care. We will follow. Nickolas Smalls DO
[2017-12-19 16:59] VITALS: BP 109/67; PULSE 72
[2017-12-20] MEDS: Pantoprazole 40 mg EC Tab PO SCH (11:00)
[2017-12-20] MEDS: POLYETHYLENE GLYCOL 3350 17 GM/Dose PACKET PO SCH (11:09)
[2017-12-20] MEDS: Hydrocortisone 2.5% Rectal Cream(30 gm) PR SCH (11:10)
--- NOTE | 2017-12-20 15:05 | PN ---
DATE: SUBJECTIVE: I saw her in the psychiatric floor. She is resting comfortably in bed. She tells me she is going home today. She is on Anusol, Ativan, Colace, Cozaar, Ecotrin, HydroDIURIL, Lipitor, Lopressor, Maalox, Macrobid, milk of magnesia, MiraLax, Paxil, Protonix, Tylenol, and Vistaril. She has anxiety, depression, and UTI. She was nauseous. If she does go today, she will need at least 4 more days of the medicine antibiotic Macrobid for her urinary tract infection. PHYSICAL EXAMINATION: VITAL SIGNS: She has 98.1 temperature, 72 pulse, 109/67 blood pressure, and 20 respiratory rate. HEENT: Head is atraumatic, normocephalic. HEART: Regular rate. LUNGS: Clear to auscultation. ABDOMEN: Soft. EXTREMITIES: No edema. LABORATORY DATA: Labs from the , CBC was very good. SMA-20 was very good. ASSESSMENT AND PLAN: She has been seen by Cardiology and GI and they said she is okay and Psychiatry, hopefully she will improve and if she is here tomorrow, I will see her as per Psychiatry. Nickolas Smalls DO MTDD
--- NOTE | 2017-12-20 18:20 | PCM.PYCHDC ---
Mental Status Examination - Mental Status Examination Orientation: Person, Place, Situation, Time Memory: Intact Mood: Neutral Affect: Constricted (but reactive and mood congruent) Speech: Appropriate Attention: WNL Concentration: WNL Association: WNL Fund of Knowledge: WNL Formal Thought Process: No Impairment Description of patient's judgement and insight: Pt has improved insight into mental and medical illness, pt was compliant with medications and unit rules and regulations, pt was going to groups, was calm, cooperative, socially appropriate, no behavioral incidents, no agitation, no aggression. Psychotic Thoughts and Behaviors: Pt denied v/a/t hallucinations, denied paranoid ideations, pt does not appear to be psychotic, and thought process is goal directed. Suicidal Ideation: No Current Homicidal Ideation?: No Plan: pt adamantly denied thoughts of harming self or others denied intent or plan. Discharge Summary - Discharge Note Reason for Hospitalization: pt was admitted for evaluation of worsening of depression, worsening anxiety, inability of function. Psychiatric History (includes Medical, Family, Personal Hx): see HPI Laboratory Data: 12/19/17 07:45 12/19/17 07:45 Lab Results 12/19/17 07:45: Sodium 141, Chloride 103, Potassium 4.5, Carbon Dioxide 28, Anion Gap 15, BUN 15, Creatinine 0.7, Est GFR ( Amer) > 60, Est GFR (Non- Af Amer) > 60, Random Glucose 100, Calcium 10.3, Total Bilirubin 0.7, AST 33, ALT 45, Alkaline Phosphatase 53, Total Protein 7.0, Albumin 3.9, Globulin 3.1, Albumin/Globulin Ratio 1.3 12/19/17 07:45: WBC 6.8 D, RBC 4.58, Hgb 13.9, Hct 41.3, MCV 90.2, MCH 30.3, MCHC 33.7, RDW 13.3, Plt Count 257, MPV 10.3 12/18/17 07:45: RPR Nonreactive 12/18/17 07:45: TSH 3rd Generation 0.85 12/18/17 07:45: Fasting Glucose 105, Triglycerides 99, Cholesterol 177, LDL Cholesterol Direct 116, HDL Cholesterol 38 12/17/17 09:35: Sodium 142, Chloride 104, Potassium 3.7, Carbon Dioxide 26, Anion Gap 15, BUN 11, Creatinine 0.6 L, Est GFR ( Amer) > 60, Est GFR ( Non-Af Amer) > 60, Random Glucose 95, Calcium 10.3, Total Bilirubin 0.7, AST 26 , ALT 39, Alkaline Phosphatase 63, Lactate Dehydrogenase 413, Total Creatine Kinase 46, Troponin I < 0.01, Total Protein 7.7, Albumin 4.4, Globulin 3.3, Albumin/Globulin Ratio 1.3, Lipase 165 12/17/17 09:35: pO2 45, VBG pH 7.40, VBG pCO2 46.0, VBG HCO3 28.5 H, VBG Total CO2 29.9 H, VBG O2 Sat (Calc) 88.1 H, VBG Base Excess 3.0 H, VBG Potassium 4.1, Sodium 140.0, Chloride 103.0, Glucose 95, Lactate 1.2, FiO2 21.0, Venous Blood Potassium 4.1 12/17/17 09:35: PT 12.4, INR 1.08, APTT 33.8 12/17/17 09:35: WBC 9.6, RBC 4.87, Hgb 15.0, Hct 42.9, MCV 88.1, MCH 30.8, MCHC 35.0, RDW 12.9, Plt Count 290, MPV 10.4, Gran % 67.3, Lymph % (Auto) 25.5, Corson % (Auto) 6.2 H, Eos % (Auto) 0.6 L, Baso % (Auto) 0.4, Gran # 6.45, Lymph # 2.4 , Corson # 0.6, Eos # 0.1, Baso # 0.04 12/17/17 08:16: Urine Color Yellow, Urine Appearance Clear, Urine pH 6.0, Ur Specific Girard 1.025, Urine Protein Negative, Urine Glucose (UA) Negative, Urine Ketones Negative, Urine Blood Small H, Urine Nitrate Negative, Urine Bilirubin Negative, Urine Urobilinogen 0.2, Ur Leukocyte Esterase Small H, Urine RBC 2 - 5, Urine WBC 5 - 10, Ur Epithelial Cells 4 - 5, Amorphous Sediment Few, Urine Bacteria Many, Urine Other Uyeast Vital Signs Temp Pulse Resp BP Pulse Ox 12/19/17 16:00 72 109/67 12/19/17 07:41 98.1 F 60 20 12/18/17 18:01 70 108/72 12/18/17 15:00 70 108/72 12/18/17 09:25 71 120/72 12/18/17 07:42 98.0 F 71 20 120/72 12/18/17 07:27 98.0 F 74 20 98/59 L 12/17/17 23:50 98.0 F 67 20 120/88 12/17/17 21:32 61 18 115/73 96 12/17/17 19:11 63 18 111/68 96 12/17/17 18:58 68 18 125/69 96 12/17/17 16:52 64 18 129/74 96 12/17/17 15:05 74 18 132/83 96 12/17/17 12:15 98.9 F 61 18 141/82 96 12/17/17 09:14 98.9 F 63 18 125/82 97 12/17/17 06:09 72 18 130/77 97 12/17/17 06:00 97.8 F Consultations:: List each consultation separately and include: 1. Reason for request. 2. Findings. 3. Follow-up Consultations: medical consult cardiology consult GI consult all appreciated Summary of Hospital Course include:: 1. Description of specific treatment plan utilized for patients during their course of treatmen. 2. Summarize the time- course for resolution of acute symptoms and/or regressed behaviors. 3. Describe issues identified and worked on during hospitalization. 4. Describe medication utilized. 5. Describe medical problems identified and treated. 6. Reassessment of suicide risk Summary of Hospital Course: shortly patient is 52 year old female, self reported a history depression and anxiety, denied previous psychiatric admissions, denied h/o suicidal attempts, pt has multiple medical problems including HTN, GI fistula, dyslipidemia, strong family h/o mental illness of schizophrenia and bipolar spectrum, came to the hospital for abdominal discomfort, ED physician was concerned about pt's presentation, pt was anxious, tearful and it was the second visit to ED for the past week (12/12/17 and 12/17/17) for the similar symptoms and psychiatric evaluation was called. during the initial evaluation at ED by [facility] pt was found to be very anxious, difficulties to concentrate, depressed, tearful, pt mentioned that unintentionally she lost 20 Lb for the past two months, was refusing to have medical tests done (colonoscopy), pt had scheduled appt with Dr.Paul Parisi (local psychiatrist) today 12/18/17, but was not able to wait till the morning time to see the psychiatrist and requested psych admission. at the time of admission patient appears to be careless for her appearance, long /uncombed hair, pulled back to the ponytail, no make up, dark circles under eyes , tearful, flat and depressed affect, good ADLs. pt said that she went through a lot of losses, pt's boyfriend of 10+years 4years ago, pt still blames herself for not doing more that she did, pt said that she lost her mother in 1992 because of lung cancer, father of heart attack in 1996, pt has only one sister who has multiple medical problems. Pt said that she was always depressed but now "it is out of control, I am crying for small little things, I cannot sleep, maximum I sleep for couple of hours", pt said that she is not suicidal or homicidal but her symptoms are affecting her functionality, pt said that she is afraid of dying and that is why she refused to have colonoscopy "I know it is irrational but I am afraid that I will never wake up after anesthesia". pt said that she lost 20+Lb unintentionally because she lost her appetite for the past two months. "I used to be resilient in crisis situations, but now I feel I not able to handle anything" pt reported that she feels "constant state of nervousness" pt said that she is worried about her medical issues "it is out of control, I am cheking and rechecking my symptoms, I feel like I have no fistula but I have a cancer, then I am worried about my health, about future, about bills, about my sister...". pt said that she has episodes when she could feel her chest is tight, difficulties to breath, shakines, fear of dying which brought pt to ED on . pt said that her GI doctor prescribed zoloft on 12/09/17 after what "I feel worse , I feel more anxious". pt denied manic symptoms, none identified. pt denied v/a/t hallucinations, denied paranoid ideation. Past psych h/o: GI prescribed zoloft, but pt was more anxious on this medication , prescribed paxil and ativan, but pt did not feel comfortable to take meds. Medical h/o: see above. Social h/o: pt lives alone, works, no h/o drugs or alcohol or smoking. Family h/o; strong family h/o mental illness, pt has h/o bipolar and ? schizophrenia, alcohol addiction, tried to commit suicide. sister is on disability due to bipolar disorder, currently on valium, vistaril, zoloft, xanax. pt made a request she does not want to be on medication which potentially could give addiction. this insurance underwriter educated about paxil at night and vistaril for anxiety. risk/benefits and alternatives discussed. 12/17/17 09:35 12/17/17 09:35 Lab Results 12/18/17 07:45: TSH 3rd Generation 0.85 12/18/17 07:45: Fasting Glucose 105, Triglycerides 99, Cholesterol 177, LDL Cholesterol Direct 116, HDL Cholesterol 38 12/17/17 09:35: Sodium 142, Chloride 104, Potassium 3.7, Carbon Dioxide 26, Anion Gap 15, BUN 11, Creatinine 0.6 L, Est GFR ( Amer) > 60, Est GFR ( Non-Af Amer) > 60, Random Glucose 95, Calcium 10.3, Total Bilirubin 0.7, AST 26 , ALT 39, Alkaline Phosphatase 63, Lactate Dehydrogenase 413, Total Creatine Kinase 46, Troponin I < 0.01, Total Protein 7.7, Albumin 4.4, Globulin 3.3, Albumin/Globulin Ratio 1.3, Lipase 165 12/17/17 09:35: pO2 45, VBG pH 7.40, VBG pCO2 46.0, VBG HCO3 28.5 H, VBG Total CO2 29.9 H, VBG O2 Sat (Calc) 88.1 H, VBG Base Excess 3.0 H, VBG Potassium 4.1, Sodium 140.0, Chloride 103.0, Glucose 95, Lactate 1.2, FiO2 21.0, Venous Blood Potassium 4.1 12/17/17 09:35: PT 12.4, INR 1.08, APTT 33.8 12/17/17 09:35: WBC 9.6, RBC 4.87, Hgb 15.0, Hct 42.9, MCV 88.1, MCH 30.8, MCHC 35.0, RDW 12.9, Plt Count 290, MPV 10.4, Gran % 67.3, Lymph % (Auto) 25.5, Corson % (Auto) 6.2 H, Eos % (Auto) 0.6 L, Baso % (Auto) 0.4, Gran # 6.45, Lymph # 2.4 , Corson # 0.6, Eos # 0.1, Baso # 0.04 12/17/17 08:16: Urine Color Yellow, Urine Appearance Clear, Urine pH 6.0, Ur Specific Girard 1.025, Urine Protein Negative, Urine Glucose (UA) Negative, Urine Ketones Negative, Urine Blood Small H, Urine Nitrate Negative, Urine Bilirubin Negative, Urine Urobilinogen 0.2, Ur Leukocyte Esterase Small H, Urine RBC 2 - 5, Urine WBC 5 - 10, Ur Epithelial Cells 4 - 5, Amorphous Sediment Few, Urine Bacteria Many, Urine Other Uyeast Vital Signs Temp Pulse Resp BP Pulse Ox 12/18/17 09:25 71 120/72 12/18/17 07:42 98.0 F 71 20 120/72 12/18/17 07:27 98.0 F 74 20 98/59 L 12/17/17 23:50 98.0 F 67 20 120/88 12/17/17 21:32 61 18 115/73 96 12/17/17 19:11 63 18 111/68 96 12/17/17 18:58 68 18 125/69 96 12/17/17 16:52 64 18 129/74 96 12/17/17 15:05 74 18 132/83 96 12/17/17 12:15 98.9 F 61 18 141/82 96 12/17/17 09:14 98.9 F 63 18 125/82 97 12/17/17 06:09 72 18 130/77 97 12/17/17 06:00 97.8 F during this short stay in the hospital patient was initiated Paxil which was titrated to 10 mg at the nighttime, Zoloft was discontinued, Vistaril was started 25 mg 3 times a day as needed for anxiety. Patient tolerated medications well, no side effects observed or reported, aims 0, no EPS. patient improved significantly, anxiety is much better, patient was able to sleep, participated in unit activities, was going to groups and had group therapy. Over the course of this hospitalization pt was attending groups, pt also had medication management, had therapeutic milieu. Overall pt improved significantly, pt's affect became brighter, pt was less depressed, has realistic future oriented plans, pt also does not appear to be psychotic, or anxious, pt was socially appropriate, no behavioral issues, pts insight improved as well and soon pt deemed to be ready for discharge. At the time of the discharge pt denied been depressed, denied thoughts of harming self or others, denied psychotic symptoms, and pt does not appeared to be psychotic, denied been anxious, pt is not in imminent danger to self or others, will be following up at Dr.Paul Parisi's office (local psychiatrist)., information about follow up appointment, time and address provided to the pt, it is patient responsibility to follow up with outpatient clinic, PMD as well as specialists (see SW note for more detailed information). In case pt will need to obtain results of studies pending at discharge pt was provided with contact information of Psychiatric Inpatient unit [phone] as well as Medical Record Department [phone]. pt was provided with prescriptions for all of medications (please see medication reconciliation form) Pt was educated about safety plan in case of worsening of symptoms or in case of suicidal or homicidal ideation call 911 or go to the nearest ER, also was educated to take meds as prescribed and stay away from drugs, pt verbalized understanding. - Diagnosis (1) MDD (major depressive disorder) Status: Acute Priority: High (2) JG (generalized anxiety disorder) Status: Acute Priority: High - Final Diagnosis (DSM 5) Condition upon Discharge: GOOD Disposition: HOME/ ROUTINE Follow-up Treatment Plan: At the time of the discharge pt denied been depressed, denied thoughts of harming self or others, denied psychotic symptoms, and pt does not appeared to be psychotic, denied been anxious, pt is not in imminent danger to self or others, will be following up at Dr.Paul Parisi's office (local psychiatrist)., information about follow up appointment, time and address provided to the pt, it is patient responsibility to follow up with outpatient clinic, PMD as well as specialists (see SW note for more detailed information). In case pt will need to obtain results of studies pending at discharge pt was provided with contact information of Psychiatric Inpatient unit [phone] as well as Medical Record Department [phone]. pt was provided with prescriptions for all of medications (please see medication reconciliation form) Pt was educated about safety plan in case of worsening of symptoms or in case of suicidal or homicidal ideation call 911 or go to the nearest ER, also was educated to take meds as prescribed and stay away from drugs, pt verbalized understanding. Prescriptions/Medication Reconciliation: hydrOXYzine Pamoate [Vistaril] 25 mg PO 0900,1800 PRN #30 cap PRN Reason: Anxiety Nitrofurantoin Macrocrystals [Macrobid] 100 mg PO Q12 #10 cap PARoxetine [Paxil] 10 mg PO HS #14 tab - Smoking Cessation Smoking Cessation Medication prescribed: No Reason for not providing: pt denies smoking
== END 2017-12-20 15:33 | disposition home or self-care (01) | DRG 881 ==
LOC: ED 05:49 → ERH 14:03 → PSYC 22:24
PROVIDERS: ADMIT Psychiatry & Neurology Psychiatry; ATTEND Psychiatry & Neurology Psychiatry
DX: F32.9 Major depressive disorder, single episode, unspecified (principal); N39.0 Urinary tract infection, site not specified; F41.1 Generalized anxiety disorder; E11.9 Type 2 diabetes mellitus without complications; D64.9 Anemia, unspecified; E78.00 Pure hypercholesterolemia, unspecified; I10 Essential (primary) hypertension; K80.20 Calculus of gallbladder without cholecystitis without obstruction; Z79.82 Long term (current) use of aspirin

== ENCOUNTER 2018-10-10 18:02 | Emergency (ER) | payer OTHER ==
[2018-10-10 18:13] VITALS: BMI 36.0
--- NOTE | 2018-10-10 18:59 | ED PDOC ---
Arrival/HPI - General Historian: Patient - History of Present Illness Narrative History of Present Illness (Text): 10/10/18 18:55 52 year old female with a past medical history of hypertension and hyperlipidemia who presents to the emergency department after having a mechanical fall prior to arrival. Patient states she was bringing her laundry in her roller when she tripped and fell onto the roller. The patient denies any lightheadedness, dizziness, chest pain, or palpitations prior to the fall. Patient denies any fevers, chills, nausea, vomiting, headache, or any other complaints. PMD: Dr. Boone Medical history: hypertension, hyperlipidemia Medications: Losartan/hctz, Aspirin, metoprolol, Simvistatin, Paxil Surgical history: Denies Allergies: Denies Social history: Denies tobacco or alcohol use. Denies illicit drug use. Time/Duration: Prior to Arrival Symptom Onset: Sudden Symptom Course: Unchanged Quality: Throbbing Severity Level: 1 Activities at Onset: Rest Context: Sitting <Doni Wilson - Last Filed: 10/10/18 20:59> <Familia Israel DO - Last Filed: 10/11/18 15:56> - General Chief Complaint: Trauma Time Seen by Provider: 10/10/18 18:12 Past Medical History - Provider Review Nursing Documentation Reviewed: Yes - Infectious Disease Hx of Infectious Diseases: None - Reproductive Menopause: Yes - Cardiac Hx Cardiac Disorders: Yes (hyperlipidemia) Hx Hypertension: Yes - Pulmonary Hx Respiratory Disorders: No - Neurological Hx Neurological Disorder: No - HEENT Hx HEENT Disorder: No - Renal Hx Renal Disorder: No - Endocrine/Metabolic Hx Endocrine Disorders: No - Hematological/Oncological Hx Blood Disorders: No - Integumentary Hx Dermatological Disorder: No - Musculoskeletal/Rheumatological Hx Musculoskeletal Disorders: No Hx Arthritis: (joint pains) Hx Falls: No - Gastrointestinal Hx Gall Bladder Disease: Yes (cholelitiasis) - Genitourinary/Gynecological Hx Genitourinary Disorders: No - Psychiatric Hx Psychophysiologic Disorder: Yes Hx Anxiety: Yes Hx Depression: Yes Hx Substance Use: No - Past Surgical History Past Surgical History: No Previous - Anesthesia Hx Anesthesia: No - Suicidal Assessment Feels Threatened In Home Enviroment: No <Doni Wilson - Last Filed: 10/10/18 20:59> Family/Social History - Physician Review Nursing Documentation Reviewed: Yes Family/Social History: No Known Family HX Smoking Status: Never Smoked Hx Alcohol Use: No Hx Substance Use: No <Doni Wilson - Last Filed: 10/10/18 20:59> Allergies/Home Meds <KatieDoni napier - Last Filed: 10/10/18 20:59> <Jhonatan Familia - Last Filed: 10/11/18 15:56> Allergies/Adverse Reactions: Allergies No Known Allergies Allergy (Verified 12/18/17 00:00) Home Medications: Home Meds Medication Instructions Recorded Confirmed Losartan/Hydrochlorothiazide 1 tab PO DAILY 03/16/16 10/10/18 [Hyzaar 100-25 Tablet] Review of Systems - Physician Review All systems were reviewed & negative as marked: Yes - Review of Systems Constitutional: Normal. absent: Fatigue, Weight Change Eyes: Normal. absent: Vision Changes, Photophobia ENT: Normal. absent: Hearing Changes, Rhinorrhea Respiratory: Normal. absent: SOB, Cough Cardiovascular: Normal. absent: Chest Pain, Syncope Gastrointestinal: Normal. absent: Abdominal Pain, Vomiting Musculoskeletal: Other (Left arm and elbow pain.). absent: Arthralgias, Back Pain Skin: Normal. absent: Rash, Pruritis Neurological: Normal. absent: Headache, Dizziness Endocrine: Normal. absent: Diaphoresis, Polyuria Hemo/Lymphatic: Normal. absent: Adenopathy, Easy Bleeding Psychiatric: Normal. absent: Anxiety, Depression <Doni Wilson - Last Filed: 10/10/18 20:59> Physical Exam Vital Signs Reviewed: Yes Vital Signs Temp Pulse Resp BP Pulse Ox 10/10/18 18:02 98.9 F 80 18 142/85 97 Temperature: Afebrile Blood Pressure: Normal Pulse: Regular Respiratory Rate: Normal Appearance: Positive for: Well-Appearing, Non-Toxic, Comfortable Pain Distress: None Mental Status: Positive for: Alert and Oriented X 3. No: Confused - Systems Exam Head: Present: Atraumatic, Normocephalic. No: Abrasion Pupils: Present: PERRL. No: Sluggish Extroacular Muscles: Present: EOMI. No: Gaze Palsy Conjunctiva: Present: Normal. No: Injected Mouth: Present: Moist Mucous Membranes. No: Dry, Normal Teeth Neck: Present: Normal Range of Motion. No: Meningeal Signs, JVD Respiratory/Chest: Present: Clear to Auscultation, Good Air Exchange. No: Wheezes Cardiovascular: Present: Regular Rate and Rhythm, Normal S1, S2. No: Tachycardic Abdomen: Present: Normal Bowel Sounds. No: Tenderness, Distention, Guarding, McBurney's Point Tender Upper Extremity: Present: Normal Inspection. No: Cyanosis, Edema Lower Extremity: Present: Normal Inspection. No: Edema, Normal ROM Neurological: Present: CN II-XII Intact, Speech Normal Skin: Present: Warm, Dry, Normal Color. No: Rashes, Cold Psychiatric: Present: Alert, Oriented x 3, Normal Insight <Doni Wilson - Last Filed: 10/10/18 20:59> Vital Signs Temp Pulse Resp BP Pulse Ox 10/10/18 18:02 98.9 F 80 18 142/85 97 <Familia Israel DO - Last Filed: 10/11/18 15:56> Medical Decision Making ED Course and Treatment: 10/10/18 19:01 52 year old female with a past medical history of hypertension and hyperlipidemia who presents to the emergency department after having a mechanical fall prior to arrival. Mechanical Fall Plan: Left elbow xray Left forearm and upper arm xray Head CT 10/10/18 20:50 Elbow reduced. Confirmed with bedside Xray. Patient placed in posterior arm splint. Patient placed in sling. Referral and follow up to Orthopedics given. - RAD Interpretation Radiology Orders: 10/10/18 18:42 ELBOW LEFT 3 VIEWS ROUTINE [RAD] Stat FOREARM LEFT [RAD] Stat HUMERUS LEFT [RAD] Stat - Medication Orders Current Medication Orders: Ketorolac Tromethamine (Toradol) 60 mg IM STAT STA Stop: 10/10/18 18:43 <Doni Wilson - Last Filed: 10/10/18 20:59> ED Course and Treatment: 10/10/18 19:18 Torri Larios is a 52 year old female who presents to the emergency department for further evaluation s/p mechanical fall today. In agreement with resident note, which includes further HPI details. Patient was seen and evaluated with resident, came up with plan and treatment together. 10/10/18 20:54 PROCEDURE: PROCEDURAL SEDATION Performed by the emergency provider Start Time: 2014 Consent: Informed consent, after discussion of the risks, benefits, and alternatives to the procedure, was obtained. Timeout: A timeout to verify the correct patient, procedure, and site was performed immediately prior to the procedure. Indication: Mallampati Classification: 1 Last Meal: The patient ate 6 hours ago. Patient History: History of adverse reactions involving sedation/anesthesia: No patient or fam chau history of adverse reaction Patients H & P remains current: {YES} History and Physical and Current Medication list reviewed: {YES Appropriate Candidate: Based on history and airway assessment, patient is an appropriate candidate for Moderate / Procedural Sedation: {YES} Preparation: Cardiac monitoring and continuous pulse oximetry. IV access obtained. Suction immediately available at bedside. Patient Position: supine Anesthesia: Patient was given appropriate sedation. See MAR for details. Post-procedure: Patient tolerated the procedure well with no immediate complications. Patient recovered from sedation uneventfully and {did not} require airway intervention. Post anesthesia the patient's vital signs including respiratory function, cardiovascular function, and temperature were {stable}. The patient's pain post anesthesia was assessed as {mild}. The patient was assessed for nausea post-sedation and the patient {denies} it. At discharge patient back to baseline mental status and able to tolerate PO fluids in Emergency Department End Time: 203910/11/18 15:52 10/11/18 15:54 - RAD Interpretation Radiology Orders: 10/10/18 18:42 ELBOW LEFT 3 VIEWS ROUTINE [RAD] Stat FOREARM LEFT [RAD] Stat HUMERUS LEFT [RAD] Stat 10/10/18 19:03 HEAD W/O CONTRAST [CT] Stat - Medication Orders Current Medication Orders: Discontinued Medications Ketorolac Tromethamine (Toradol) 60 mg IM STAT STA Stop: 10/10/18 18:43 Last Admin: 10/10/18 19:08 Dose: 60 mg [facility] Pain Assessment Document 10/10/18 19:08 SRE (Rec: 10/10/18 19:09 SRE [id number]) Pain Reassessment Is this a pain reassessment? Yes Sleep Is patient sleeping during reassessment? No Presence of Pain Presence of Pain Yes Pain Scale Used Protocol: PSCALES Pain Scale Used Numeric Location Left, Right or Bilateral Left Pain Location Body Site Wrist Generalized Description Description Constant IM Administration Charges Document 10/10/18 19:08 SRE (Rec: 10/10/18 19:09 SRE [id number]) Charges for Administration # of IM Administrations 1 <Familia Israel DO - Last Filed: 10/11/18 15:56> Disposition/Present on Arrival - Present on Arrival Any Indicators Present on Arrival: No History of DVT/PE: No History of Uncontrolled Diabetes: No Urinary Catheter: No History of Decub. Ulcer: No History Surgical Site Infection Following: None - Disposition Have Diagnosis and Disposition been Completed?: Yes Disposition Time: 20:53 Patient Plan: Discharge <Bob Wilsonn - Last Filed: 10/10/18 20:59> - Disposition Disposition Time: 20:50 <Familia Israel DO - Last Filed: 10/11/18 15:56> - Disposition Diagnosis: Elbow dislocation Disposition: HOME/ ROUTINE Condition: IMPROVED Discharge Instructions (ExitCare): Cast Care, Elbow Dislocation Additional Instructions: TORRI LARIOS, thank you for letting us take care of you today. The emergency medical care you received today was directed at your acute symptoms. If you were prescribed any medication, please fill it and take as directed. It may take several days for your symptoms to resolve. Return to the Emergency Department if your symptoms worsen, do not improve, or if you have any other problems. Please contact your doctor or call one of the physicians/clinics you have been referred to that are listed on the Patient Visit Information form that is included in your discharge packet. Bring any paperwork you were given at discharge with you along with any medications you are taking to your follow up visit. Our treatment cannot replace ongoing medical care by a primary care provider outside of the emergency department. Thank you for allowing the [facility] team to be part of your care today. DO NOT TAKE THE SPLINT OFF UNTIL SEEN BY THE ORTHOPEDIC DOCTOR. DO NOT GET IT WET. Followup with Dr. Ken, the orthopedic doctor, in 2-3 days for re-evaluation and further management. Prescriptions: Ibuprofen [Motrin] 600 mg PO Q6 PRN #20 tab PRN Reason: Pain, Moderate (4-7) Referrals: Junior Ken MD [Staff Provider] - Follow up with primary Forms: [employer] (Icelandic)
[2018-10-10] MEDS ORDERED: Midazolam 2 MG/2 ML VIAL ONE (20:12)
[2018-10-10] MEDS: Midazolam 2 MG/2 ML VIAL IVP STA ×2 (20:26→20:35)
[2018-10-10 22:47] VITALS: RESP 18; TEMP 98.7
[2018-10-10 22:51] VITALS: BP 122/69; PULSE 81; O2SAT 96
--- NOTE | 2018-10-11 08:34 | CT ---
Date of service: 10/10/2018 PROCEDURE: CT HEAD WITHOUT CONTRAST. HISTORY: s/p mechanical fall COMPARISON: Noncontrast head CT 12/12/17 TECHNIQUE: Axial computed tomography images were obtained through the head/brain without intravenous contrast. Radiation dose: Total exam DLP = 1148.65 mGy-cm. This CT exam was performed using one or more of the following dose reduction techniques: Automated exposure control, adjustment of the mA and/or kV according to patient size, and/or use of iterative reconstruction technique. FINDINGS: HEMORRHAGE: No intracranial hemorrhage. BRAIN: No mass effect or edema. The hoskins-white matter differentiation appears intact. Please note that MRI with diffusion imaging is more sensitive in the detection of acute ischemic event. VENTRICLES: No hydrocephalus. CALVARIUM: Unremarkable. PARANASAL SINUSES: Mild mucosal thickening the air cells and left maxillary sinus. MASTOID AIR CELLS: Unremarkable as visualized. No inflammatory changes. OTHER FINDINGS: None. IMPRESSION: No acute intracranial pathology identified. Preliminary impression was provided by [employer].
--- NOTE | 2018-10-11 09:16 | RAD ---
PROCEDURE: Radiographs of the left elbow. HISTORY: s/p reduction COMPARISON: Left elbow radiograph performed 10/10/18 at 1933 hr FINDINGS: 2 lateral images were provided. 1st imaged demonstrates dislocation status post unsuccessful attempt at reduction. Second image demonstrates apparent successful reduction however in the absence of orthogonal views, evaluation is limited. Soft tissue swelling. No acute displaced fracture identified. IMPRESSION: 2 lateral images were provided. 1st imaged demonstrates dislocation status post unsuccessful attempt at reduction. Second image demonstrates apparent successful reduction however in the absence of orthogonal views, evaluation is limited. Soft tissue swelling. No acute displaced fracture identified.
--- NOTE | 2018-10-11 09:41 | RAD ---
PROCEDURE: Radiographs of the left humerus. HISTORY: s/p mechanical fall COMPARISON: None available. FINDINGS: BONES: No acute displaced fracture identified. Limited evaluation of dislocated elbow. SOFT TISSUES: Soft tissue swelling. No evidence of radiopaque foreign body. OTHER FINDINGS: None. IMPRESSION: No acute displaced fracture of the humerus. Dislocation of the left elbow.
--- NOTE | 2018-10-11 09:43 | RAD ---
PROCEDURE: Radiographs of the left elbow. HISTORY: s/p mechanical fall COMPARISON: No prior. FINDINGS: BONES: No acute displaced fracture. JOINTS: Dislocation of the elbow. SOFT TISSUES: Soft tissue swelling. No evidence of radiopaque foreign body. JOINT EFFUSION: Joint effusion consistent with dislocation. OTHER FINDINGS: None IMPRESSION: No acute displaced fracture identified. Elbow dislocation and effusion. Soft tissue swelling.
--- NOTE | 2018-10-11 09:50 | RAD ---
PROCEDURE: Radiographs of the left elbow. HISTORY: s/p mechanical fall COMPARISON: No prior. FINDINGS: Dislocation of the elbow joint with marked soft tissue swelling and prominent posterior and anterior joint effusions. No acute displaced fracture identified. IMPRESSION: Dislocation of the elbow joint with marked soft tissue swelling and prominent posterior and anterior joint effusions. No acute displaced fracture identified.
== END 2018-10-10 20:59 | disposition home or self-care (01) ==
LOC: ED 18:02
DX: S53.105A Unspecified dislocation of left ulnohumeral joint, initial encounter (principal); W01.0XXA Fall on same level from slipping, tripping and stumbling without subsequent striking against object, initial encounter; Y92.89 Other specified places as the place of occurrence of the external cause
CPT/HCPCS: 24600; 70450; 73060; 73080; 73090; 96372; 99285; J1885; J2250; J3010